=== PATIENT | male | born 1940 | race Caucasian/White ===

== ENCOUNTER → 2017-11-03 11:48 | Outpatient (CLI) | payer OTHER, SELFPAY ==
[2017-11-03 12:04] LABS: Add Manual Diff / Slide Review NO; Basophils Percent Auto 0.6 % (0-2); Eosinophils Percent Auto 1.9 % (2-4); Hematocrit 41.2 % (41-53); Hemoglobin 13.8 g/dL (13.5-17.5); Lymphocytes Percent Auto 26.5 % (25-40); Mean Corpuscular HGB Conc 33.4 % (30-36); Mean Corpuscular Hemoglobin 29.6 PG (26-34); Mean Corpuscular Volume 88.7 fL (80-100); Monocytes Percent Auto 6.5 % (3-14); Neutrophils Absolute Auto 4000 /uL (3000-5900); Neutrophils Percent Auto 64.5 % (50-75); Platelet Count 182 X10^3/uL (150-400); Red Blood Cell Count 4.65 X10^6/uL (4.5-5.9); Red Cell Distribution Width 13.5 % (11.6-14.8); White Blood Cell Count 6.3 X10^3/uL (4.5-11.0)
[2017-11-03 12:19] LABS: Alanine Aminotransferase 22 IU/L (21-72); Albumin 4.1 g/dL (3.5-5.0); Albumin Globulin Ratio 1.6 (1.0-2.8); Alkaline Phosphatase 51 U/L (38-126); Aspartate Aminotransferase 17 IU/L (17-59); Bilirubin Total 0.6 mg/dL (0.2-1.3); Blood Urea Nitrogen 21 mg/dL (9-20); Calcium 9.4 mg/dL (8.4-10.2); Carbon Dioxide 29 mmol/L (22-32); Chloride 103 mmol/L (98-107); Cholesterol 129 mg/dL (140-199); Estimated Glomerular Filt Rate > 60.0 mL/min (>60); Globulin 2.6 g/dL (1.7-4.1); Glucose 96 mg/dL (80-110); HDL Cholesterol 48 mg/dL (40-60); HEMOLYSIS < 15 (0-50); LDL Cholesterol Calculated 68 mg/dL (<100); Potassium 4.4 mmol/L (3.4-5.1); Sodium 139 mmol/L (137-145); Total Protein 6.7 g/dL (6.3-8.2); Triglycerides 65 mg/dL (35-150)
[2017-11-03 12:21] LABS: Hemoglobin A1C% w Est Avg Glu 6.3 % (4.0-6.0)
[2017-11-03 15:51] LABS: Creatinine Urine Random 95.6 mg/dL
[2017-11-03 15:53] LABS: Microalbumi Creatinin Ratio Ur 19.8 ug/mg CR (<30); Microalbumin Urine Random 1.9 mg/dL (0-1.6)
== END ==
PROVIDERS: PCP Family Medicine; Visit Provider Family Medicine
DX: E11.9 Type 2 diabetes mellitus without complications (principal); E78.00 Pure hypercholesterolemia, unspecified; Z79.899 Other long term (current) drug therapy; Z00.00 Encounter for general adult medical examination without abnormal findings
CPT/HCPCS: 36415; 80053; 80061; 82043; 82570; 83036; 85025

== ENCOUNTER → 2017-11-17 12:25 | Outpatient (CLI) | payer OTHER, SELFPAY | PROVIDERS: PCP Family Medicine; Visit Provider Urology | DX: R97.20 Elevated prostate specific antigen [PSA] (principal) | CPT/HCPCS: 36415; 84153 ==

== ENCOUNTER → 2018-06-15 09:25 | Outpatient (CLI) | payer OTHER, SELFPAY ==
--- NOTE | 2018-06-15 09:27 | DI.RAD.S_ITS ---
PROCEDURE: XR KNEE LT 3V INDICATIONS: Left knee pain and injury TECHNIQUE: 3 views of the knee were acquired. COMPARISON: None. FINDINGS: Bones: No fractures or dislocations. No suspicious bony lesions. [id number] tricompartment osteoarthritis is seen. Chondrocalcinosis in all 3 compartments of left knee is also noted. Soft tissues: There is moderate amount of joint effusion. No suspicious soft tissue calcifications. Vascular calcification is seen in posterior left knee. IMPRESSION: Moderate tricompartment osteoarthritis and chondrocalcinosis. Moderate joint effusion. No fracture or dislocation. Dictated by: David Hartman M.D. on 06/15/2018 at 12:34 Approved by: David Hartman M.D. on 06/15/2018 at 12:35
[2018-06-15 10:46] LABS: Hemoglobin A1C% w Est Avg Glu 7.9 % (4.0-6.0)
== END ==
PROVIDERS: PCP Student in an Organized Health Care Education/Training Program; Visit Provider Nurse Practitioner
DX: M25.562 Pain in left knee (principal); E11.9 Type 2 diabetes mellitus without complications; M17.12 Unilateral primary osteoarthritis, left knee; M11.262 Other chondrocalcinosis, left knee; M25.462 Effusion, left knee
CPT/HCPCS: 36415; 73562; 83036

== ENCOUNTER → 2018-07-31 10:36 | Outpatient (CLI) | payer OTHER, SELFPAY ==
[2018-07-31 11:11] LABS: Hematocrit 42.5 % (41-53); Hemoglobin 14.4 g/dL (13.5-17.5); Mean Corpuscular HGB Conc 33.9 % (30-36); Mean Corpuscular Hemoglobin 29.9 PG (26-34); Mean Corpuscular Volume 88.3 fL (80-100); Platelet Count 204 X10^3/uL (150-400); Red Blood Cell Count 4.82 X10^6/uL (4.5-5.9); Red Cell Distribution Width 14.3 % (11.6-14.8); White Blood Cell Count 6.5 X10^3/uL (4.5-11.0)
[2018-07-31 11:29] LABS: Hemoglobin A1C% w Est Avg Glu 7.3 % (4.0-6.0)
[2018-07-31 11:33] LABS: Alkaline Phosphatase 62 U/L (38-126); Blood Urea Nitrogen 16 mg/dL (9-20); Calcium 9.8 mg/dL (8.4-10.2); Carbon Dioxide 27 mmol/L (22-32); Chloride 101 mmol/L (98-107); Estimated Glomerular Filt Rate > 60.0 mL/min (>60); Glucose 117 mg/dL (80-110); HEMOLYSIS < 15 (0-50); Phosphorous 3.7 mg/dL (2.3-3.7); Potassium 4.6 mmol/L (3.4-5.1); Sodium 137 mmol/L (137-145); Uric Acid 5.6 mg/dL (3.5-8.5)
[2018-08-02 14:40] LABS: Parathyroid Hormone Int 44 pg/mL (14-64)
== END ==
PROVIDERS: PCP Student in an Organized Health Care Education/Training Program; Visit Provider Urology
DX: R97.20 Elevated prostate specific antigen [PSA] (principal); E11.9 Type 2 diabetes mellitus without complications; M11.20 Other chondrocalcinosis, unspecified site
CPT/HCPCS: 36415; 80048; 83036; 83735; 83970; 84075; 84100; 84550; 85027

== ENCOUNTER → 2018-08-09 11:37 | Outpatient (CLI) | payer OTHER, SELFPAY ==
[2018-08-09 13:03] LABS: Prostate Specific Antigen 7.42 ng/mL (0.10-4.00)
== END ==
PROVIDERS: PCP Student in an Organized Health Care Education/Training Program; Visit Provider Urology
DX: R97.20 Elevated prostate specific antigen [PSA] (principal)
CPT/HCPCS: 84153

== ENCOUNTER → 2018-10-08 12:13 | Outpatient (CLI) | payer OTHER, SELFPAY ==
[2018-10-08 13:37] LABS: Prostate Specific Antigen 6.96 ng/mL (0.10-4.00)
== END ==
PROVIDERS: PCP Student in an Organized Health Care Education/Training Program; Visit Provider Urology
DX: R97.20 Elevated prostate specific antigen [PSA] (principal)
CPT/HCPCS: 36415; 84153

== ENCOUNTER → 2018-11-20 09:22 | Outpatient (CLI) | payer OTHER, SELFPAY ==
[2018-11-20 11:32] LABS: Hemoglobin A1C% w Est Avg Glu 6.3 % (4.0-6.0)
[2018-11-20 11:41] LABS: Creatinine Urine Random 107.7 mg/dL
[2018-11-20 11:46] LABS: Microalbumi Creatinin Ratio Ur 32.4 ug/mg CR (<30); Microalbumin Urine Random 3.5 mg/dL (0-1.6)
== END ==
PROVIDERS: PCP Student in an Organized Health Care Education/Training Program; Visit Provider Student in an Organized Health Care Education/Training Program
DX: E11.9 Type 2 diabetes mellitus without complications (principal)
CPT/HCPCS: 36415; 82043; 82570; 83036

== ENCOUNTER → 2019-04-26 14:01 | Outpatient (CLI) | payer OTHER, SELFPAY | PROVIDERS: PCP Student in an Organized Health Care Education/Training Program; Referring Provider Student in an Organized Health Care Education/Training Program; Visit Provider Student in an Organized Health Care Education/Training Program | DX: E11.9 Type 2 diabetes mellitus without complications (principal) | CPT/HCPCS: 36415; 83036 ==

== ENCOUNTER → 2020-03-26 15:00 | Outpatient (CLI) | payer OTHER, SELFPAY ==
[2020-03-26 15:58] LABS: Hemoglobin A1C% w Est Avg Glu 7.8 % (4.0-6.0)
[2020-03-26 16:15] LABS: BUN Creatinine Ratio 27.4 (6-22); Blood Urea Nitrogen 26 mg/dL (9-20); Calcium 9.6 mg/dL (8.4-10.2); Carbon Dioxide 29 mmol/L (22-32); Chloride 101 mmol/L (98-107); Estimated Glomerular Filt Rate > 60.0 mL/min (>60); Glucose 283 mg/dL (80-110); HEMOLYSIS < 15 (0-50); Potassium 4.9 mmol/L (3.4-5.1); Sodium 134 mmol/L (137-145)
[2020-03-26 16:24] LABS: Creatinine Urine Random 52.8 mg/dL
[2020-03-26 16:29] LABS: Microalbumi Creatinin Ratio Ur 13.2 ug/mg CR (<30); Microalbumin Urine Random 0.7 mg/dL (0-1.6)
== END ==
PROVIDERS: PCP Student in an Organized Health Care Education/Training Program; Referring Provider Student in an Organized Health Care Education/Training Program; Visit Provider Student in an Organized Health Care Education/Training Program
DX: E11.9 Type 2 diabetes mellitus without complications (principal); I10 Essential (primary) hypertension
CPT/HCPCS: 36415; 80048; 82043; 82570; 83036

== ENCOUNTER → 2020-06-01 14:48 | Outpatient (CLI) | payer MEDICARE, SELFPAY ==
[2020-06-01] MEDS: COVID-19 VACC, Ad26(JANSSEN)/PF 0.5 ML IM (15:03)
== END ==
PROVIDERS: PCP Student in an Organized Health Care Education/Training Program; Visit Provider Internal Medicine
DX: Z23 Encounter for immunization (principal)
CPT/HCPCS: 0031A; 91303

== ENCOUNTER → 2020-06-24 14:32 | Outpatient (CLI) | payer OTHER, SELFPAY ==
[2020-06-24 15:46] LABS: Hemoglobin A1C% w Est Avg Glu 8.2 % (4.0-6.0)
[2020-06-25 07:56] LABS: PSA Free % 24.1 % (.)
== END ==
PROVIDERS: PCP Student in an Organized Health Care Education/Training Program; Referring Provider Orthopaedic Surgery; Visit Provider Orthopaedic Surgery
DX: E11.9 Type 2 diabetes mellitus without complications (principal); N40.1 Benign prostatic hyperplasia with lower urinary tract symptoms
CPT/HCPCS: 36415; 83036; 84153; 84154

== ENCOUNTER → 2020-07-07 10:37 | Outpatient (CLI) | payer OTHER, SELFPAY ==
[2020-07-07 11:55] LABS: Blood Urea Nitrogen 18 mg/dL (9-20); Estimated Glomerular Filt Rate > 60.0 mL/min (>60)
== END ==
PROVIDERS: PCP Student in an Organized Health Care Education/Training Program; Referring Provider Student in an Organized Health Care Education/Training Program; Visit Provider Student in an Organized Health Care Education/Training Program
DX: N14.1 Nephropathy induced by other drugs, medicaments and biological substances (principal); T50.8X5A Adverse effect of diagnostic agents, initial encounter
CPT/HCPCS: 36415; 82565; 84520

== ENCOUNTER → 2020-07-09 11:52 | Outpatient (CLI) | payer OTHER, SELFPAY ==
--- NOTE | 2020-07-09 12:50 | DI.CT.S_ITS ---
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 5 mm coronal and sagittal reformats were performed, with additional 7 mm coronal MIP reformats through the lungs. For radiation dose reduction, the following was used: automated exposure control, adjustment of mA and/or kV according to patient size. COMPARISON: None. FINDINGS: Image quality: Excellent. CHEST: Lungs and pleura: No acute airspace opacities are found that would suggest presence of pneumonia but there is a finding of large lung volumes and what appears to be centrilobular emphysema at the upper lungs, and a malignant appearing spiculated 1.8 x 2.0 cm lung mass at the posterior left upper lobe. At the same axial level at the midline of the soft tissues of the back there is a mass that could represent a sebaceous cyst, measuring up to 2.9 cm in maximal transverse dimension and approximately 1.9 cm AP. This is best seen on series 2, image 15. . No pleural effusions or pneumothorax. Central and peripheral airways appear patent and normal in caliber. Mediastinum: Heart size is normal. No pericardial effusion. No mediastinal or hilar adenopathy by size criteria. Thoracic aorta and central pulmonary arteries are normal in size. Esophagus is normal in caliber. No hiatal hernia. Chest wall: No axillary or supraclavicular adenopathy by size criteria. Thyroid gland is normal where well seen. 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 ABDOMEN: Solid organs: Liver is normal in size and enhancement. Gallbladder appears partially contracted . Biliary system is non dilated. Pancreas enhances normally. Spleen is normal in size and enhancement. No adrenal nodules. Kidneys demonstrate normal size and enhancement, without hydronephrosis. Peritoneum and bowel: Bowel loops demonstrate normal wall thickness and caliber. No free fluid or air. Nodes and vessels: No retroperitoneal or mesenteric adenopathy by size criteria. Aorta and inferior vena cava are normal in size. Miscellaneous: No ventral hernias. 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 PELVIS: Genitourinary: Bladder wall thickness is normal. Miscellaneous: No inguinal hernias or adenopathy. The prostate gland does not show soft tissue mass extending through the capsular border into adjacent structures. Bones: Seen within the pelvis also is extensive osteoblastic metastatic disease. No vertebral body compression fractures. IMPRESSION: 1. Extensive osteoblastic metastatic disease through the chest abdomen and pelvis. No impending pathologic fracture is seen. 2. Through the abdomen and pelvis no adenopathy is found. There is no evidence of prostate mass extending through the prostate capsule into adjacent structures. 3. There is an unexpected finding of a malignant-appearing mass at the posterior left upper lobe measuring approximately 1.8 x 2.0 cm, spiculated. The lungs appear to show hyperexpansion consistent with COPD and centrilobular emphysema. Presumed longstanding smoking history. Nuclear medicine PET-CT scanning may be warranted for staging purposes of this presumed concurrent lung carcinoma. 4. At the same axial level as the lung mass there is a soft tissue mass exactly at the midline dorsal to the spinous processes of the thoracic spine. By appearance this likely is a sebaceous cyst but should be further assessed sonographically to confirm. Dictated by: Miguel Munson M.D. on 07/09/2020 at 17:28 Approved by: Miguel Munson M.D. on 07/09/2020 at 17:39
== END ==
PROVIDERS: PCP Student in an Organized Health Care Education/Training Program; Referring Provider Student in an Organized Health Care Education/Training Program; Visit Provider Student in an Organized Health Care Education/Training Program
DX: C80.1 Malignant (primary) neoplasm, unspecified (principal); C79.51 Secondary malignant neoplasm of bone; M89.8X5 Other specified disorders of bone, thigh; R91.8 Other nonspecific abnormal finding of lung field; J43.2 Centrilobular emphysema
CPT/HCPCS: 71260; 74177; Q9967

== ENCOUNTER → 2020-07-28 09:21 | Outpatient (CLI) | payer OTHER, SELFPAY ==
[2020-07-28 11:32] LABS: Vitamin B12 386 pg/mL (239-931)
== END ==
PROVIDERS: PCP Student in an Organized Health Care Education/Training Program; Referring Provider Student in an Organized Health Care Education/Training Program; Visit Provider Student in an Organized Health Care Education/Training Program
DX: I10 Essential (primary) hypertension; E53.8 Deficiency of other specified B group vitamins; R41.3 Other amnesia
CPT/HCPCS: 36415; 82565; 82607; 83036; 84520

== ENCOUNTER → 2020-10-03 11:34 | Outpatient (CLI) | payer OTHER, SELFPAY ==
[2020-10-03 12:15] LABS: BUN Creatinine Ratio 18.4 (6-22); Blood Urea Nitrogen 18 mg/dL (9-20); Estimated Glomerular Filt Rate > 60.0 mL/min (>60)
[2020-10-03 12:17] LABS: Hemoglobin A1C% w Est Avg Glu 7.5 % (4.0-6.0)
== END ==
PROVIDERS: PCP Student in an Organized Health Care Education/Training Program; Referring Provider Student in an Organized Health Care Education/Training Program; Visit Provider Student in an Organized Health Care Education/Training Program
DX: E11.9 Type 2 diabetes mellitus without complications (principal)
CPT/HCPCS: 36415; 82565; 83036; 84520

== ENCOUNTER → 2020-12-30 10:25 | Outpatient (CLI) | payer OTHER, SELFPAY ==
[2020-12-30 11:01] LABS: Hemoglobin A1C% w Est Avg Glu 7.7 % (4.0-6.0)
[2020-12-30 11:15] LABS: Alanine Aminotransferase 16 IU/L (<50); Albumin 4.1 g/dL (3.5-5.0); Albumin Globulin Ratio 1.8 (1.0-2.8); Alkaline Phosphatase 58 U/L (38-126); Aspartate Aminotransferase 21 IU/L (17-59); BUN Creatinine Ratio 24.2 (6-22); Bilirubin Total 0.3 mg/dL (0.2-1.3); Blood Urea Nitrogen 23 mg/dL (9-20); Calcium 9.5 mg/dL (8.4-10.2); Carbon Dioxide 26 mmol/L (22-32); Chloride 101 mmol/L (98-107); Estimated Glomerular Filt Rate > 60.0 mL/min (>60); Globulin 2.3 g/dL (1.7-4.1); Glucose 194 mg/dL (80-110); HEMOLYSIS < 15 (0-50); Potassium 4.5 mmol/L (3.4-5.1); Total Protein 6.4 g/dL (6.3-8.2)
[2020-12-30 11:21] LABS: Sodium 136 mmol/L (137-145)
== END ==
PROVIDERS: PCP Family Medicine; Referring Provider Family Medicine; Visit Provider Family Medicine
DX: C34.90 Malignant neoplasm of unspecified part of unspecified bronchus or lung (principal); E11.9 Type 2 diabetes mellitus without complications; C79.82 Secondary malignant neoplasm of genital organs
CPT/HCPCS: 36415; 80053; 83036

== ENCOUNTER → 2021-02-02 13:30 | Outpatient (CLI) | payer OTHER, SELFPAY ==
--- NOTE | 2021-02-02 13:41 | DI.CT.S_ITS ---
PROCEDURE: CT CHEST WO CON INDICATIONS: Malignant neoplasm of upper lobe, left bronchus or lung TECHNIQUE: Noncontrast 5 mm thick sections acquired from the pulmonary apices to the posterior costophrenic angles. 1 mm lung window, 5 mm thick coronal and sagittal and 7 mm axial MIP reformats were then acquired. For radiation dose reduction, the following was used: automated exposure control, adjustment of mA and/or kV according to patient size. COMPARISON: [facility], CT, CT BIOPSY LUNG/MEDIASTINUM, 08/20/2020, 8:46. [facility], CT, CT ESCOBAR, 09/22/2020, 13:17. [facility], CT, CT CHEST ABD PEL W CON, 07/09/2020, 12:59. FINDINGS: Image quality: Excellent. Lungs and pleura: Interval decrease in size of spiculated left upper lobe lung mass, previously measuring approximately 1.9 cm on previous image 72/3 and currently measuring approximately 1.1 cm on current image 62/3. No new or increasing pulmonary nodules. Multiple small calcified granulomata consistent with chronic granulomatous disease. Centrilobular emphysema. No acute air space opacities. No pleural effusions or pneumothorax. Central and peripheral airways are patent and normal in caliber. Mediastinum: Heart size is normal. No pericardial effusion. Severe coronary artery calcifications. Severe calcified proximal left subclavian artery stenosis. No mediastinal adenopathy by size criteria. Calcified mediastinal and hilar lymph nodes are consistent with chronic granulomatous disease. Thoracic aorta and central pulmonary arteries are normal in size. Esophagus is normal in caliber. No hiatal hernia. Bones and chest wall: Extensive sclerotic metastatic disease throughout the spine and ribs and scapulae bilaterally and sternum. Findings are not significantly changed. No vertebral body compression fractures. No axillary or supraclavicular adenopathy by size criteria. Thyroid gland is unremarkable . Abdomen: Visualized upper abdominal solid organs and bowel loops appear normal in the absence of contrast. IMPRESSION: 1. Interval decrease in size of spiculated left upper lobe lung mass from 1.9 cm to 1.1 cm. 2. Extensive sclerotic bony metastatic disease, as before. 3. Chronic granulomatous disease. 4. Severe coronary artery disease. 5. Severe calcified proximal left subclavian artery stenosis. Dictated by: Edgard Ramires M.D. on 02/02/2021 at 15:58 Approved by: Edgard Ramires M.D. on 02/02/2021 at 16:04
== END ==
PROVIDERS: PCP Family Medicine; Referring Provider Radiology Radiation Oncology; Visit Provider Radiology Radiation Oncology
DX: C34.12 Malignant neoplasm of upper lobe, left bronchus or lung (principal); C79.51 Secondary malignant neoplasm of bone; I25.10 Atherosclerotic heart disease of native coronary artery without angina pectoris; I77.1 Stricture of artery
CPT/HCPCS: 71250

== ENCOUNTER → 2021-02-23 13:46 | Outpatient (CLI) | payer OTHER, SELFPAY ==
[2021-02-23 14:41] LABS: Add Manual Diff / Slide Review NO; Basophils Absolute Auto 0 /uL (0-100); Basophils Percent Auto 0.5 % (0-2); Eosinophils Absolute Auto 100 /uL (0-450); Eosinophils Percent Auto 1.6 % (2-4); Hematocrit 33.1 % (41-53); Hemoglobin 11.4 g/dL (13.5-17.5); Lymphocytes Absolute Auto 1300 /uL (1100-4500); Lymphocytes Percent Auto 18.7 % (25-40); Mean Corpuscular HGB Conc 34.3 % (30-36); Mean Corpuscular Hemoglobin 30.5 PG (26-34); Mean Corpuscular Volume 88.9 fL (80-100); Monocytes Absolute Auto 500 /uL (0-900); Monocytes Percent Auto 7.4 % (3-14); Neutrophils Absolute Auto 4800 /uL (1500-7000); Neutrophils Percent Auto 71.8 % (50-75); Platelet Count 214 X10^3/uL (150-400); Red Blood Cell Count 3.73 X10^6/uL (4.5-5.9); Red Cell Distribution Width 13.1 % (11.6-14.8); White Blood Cell Count 6.7 X10^3/uL (4.5-11.0)
[2021-02-23 14:56] LABS: Alanine Aminotransferase 13 IU/L (<50); Albumin 4.2 g/dL (3.5-5.0); Albumin Globulin Ratio 1.8 (1.0-2.8); Alkaline Phosphatase 49 U/L (38-126); Aspartate Aminotransferase 20 IU/L (17-59); Bilirubin Total 0.3 mg/dL (0.2-1.3); Blood Urea Nitrogen 20 mg/dL (9-20); Calcium 9.9 mg/dL (8.4-10.2); Carbon Dioxide 28 mmol/L (22-32); Chloride 99 mmol/L (98-107); Estimated Glomerular Filt Rate > 60.0 mL/min (>60); Globulin 2.4 g/dL (1.7-4.1); Glucose 149 mg/dL (80-110); HEMOLYSIS < 15 (0-50); Potassium 4.6 mmol/L (3.4-5.1); Sodium 136 mmol/L (137-145); Total Protein 6.6 g/dL (6.3-8.2)
[2021-02-23 15:26] LABS: Prostate Specific Antigen < 0.064 ng/mL (0.10-4.00)
== END ==
PROVIDERS: PCP Family Medicine; Referring Provider Internal Medicine Hematology & Oncology; Visit Provider Internal Medicine Hematology & Oncology
DX: C61 Malignant neoplasm of prostate (principal)
CPT/HCPCS: 36415; 80053; 84153; 85025

== ENCOUNTER → 2021-04-26 12:34 | Outpatient (CLI) | payer OTHER, SELFPAY ==
[2021-04-26 13:30] LABS: Add Manual Diff / Slide Review NO; Basophils Absolute Auto 0 /uL (0-100); Basophils Percent Auto 0.6 % (0-2); Eosinophils Absolute Auto 100 /uL (0-450); Eosinophils Percent Auto 2.6 % (2-4); Hematocrit 32.6 % (41-53); Hemoglobin 11.1 g/dL (13.5-17.5); Lymphocytes Absolute Auto 1200 /uL (1100-4500); Lymphocytes Percent Auto 21.3 % (25-40); Mean Corpuscular HGB Conc 34.1 % (30-36); Mean Corpuscular Hemoglobin 30.1 PG (26-34); Mean Corpuscular Volume 88.3 fL (80-100); Monocytes Absolute Auto 400 /uL (0-900); Monocytes Percent Auto 7.6 % (3-14); Neutrophils Absolute Auto 3700 /uL (1500-7000); Neutrophils Percent Auto 67.9 % (50-75); Platelet Count 192 X10^3/uL (150-400); Red Blood Cell Count 3.69 X10^6/uL (4.5-5.9); Red Cell Distribution Width 13.4 % (11.6-14.8); White Blood Cell Count 5.4 X10^3/uL (4.5-11.0)
[2021-04-26 14:03] LABS: Alanine Aminotransferase 14 IU/L (<50); Albumin Globulin Ratio 1.7 (1.0-2.8); Alkaline Phosphatase 58 U/L (38-126); Aspartate Aminotransferase 19 IU/L (17-59); Bilirubin Total 0.3 mg/dL (0.2-1.3); Blood Urea Nitrogen 21 mg/dL (9-20); Calcium 9.8 mg/dL (8.4-10.2); Carbon Dioxide 25 mmol/L (22-32); Chloride 102 mmol/L (98-107); Estimated Glomerular Filt Rate > 60.0 mL/min (>60); Globulin 2.3 g/dL (1.7-4.1); Glucose 312 mg/dL (80-110); HEMOLYSIS < 15 (0-50); Potassium 4.8 mmol/L (3.4-5.1); Sodium 134 mmol/L (137-145); Total Protein 6.3 g/dL (6.3-8.2)
[2021-04-26 14:34] LABS: Prostate Specific Antigen < 0.064 ng/mL (0.10-4.00)
== END ==
PROVIDERS: PCP Family Medicine; Referring Provider Internal Medicine Hematology & Oncology; Visit Provider Internal Medicine Hematology & Oncology
DX: C61 Malignant neoplasm of prostate (principal)
CPT/HCPCS: 36415; 80053; 84153; 85025

== ENCOUNTER → 2021-07-14 12:08 | Outpatient (CLI) | payer OTHER, SELFPAY ==
--- NOTE | 2021-07-14 12:11 | DI.RAD.S_ITS ---
PROCEDURE: XR HIP W PEL IF DONE RT 2V INDICATIONS: right hip pain TECHNIQUE: AP pelvis with lateral view(s) of the right hip(s). COMPARISON: [facility], CT, CT CHEST ABD PEL W CON, 07/09/2020, 12:59. [facility], CR, XR CHEST 1 VIEW, 08/20/2020, 10:34. [facility], CR, XR KNEE STANDING BILATERAL, 06/25/2018, 14:32. [facility], [place], NM PET CT FUSION SKULL 2 THIGH, 08/12/2020, 7:27. [facility] [place], CR, XR PELVIS WITH LATERAL HIP RIGHT, 06/24/2020, 13:28. FINDINGS: Bones: Extensive small sclerotic lesions involving the bony pelvis and lower lumbar region. Femurs do not appear to be significantly involved. No acute fracture or dislocation. Soft tissues: The visualized bowel gas pattern is normal. No suspicious soft tissue calcifications. IMPRESSION: Extensive small sclerotic lesions are presumed to represent bony metastatic disease. No evidence of acute fracture or dislocation. If clinical suspicion and/or symptoms persist, further assessment with repeat plain films, or advanced imaging (e.g., CT, MRI, or bone scan) may be helpful for further assessment. Dictated by: Edgard Ramires M.D. on 07/14/2021 at 15:09 Approved by: Edgard Ramires M.D. on 07/14/2021 at 15:17
== END ==
PROVIDERS: PCP Family Medicine; Referring Provider Internal Medicine Hematology & Oncology; Visit Provider Internal Medicine Hematology & Oncology
DX: M89.9 Disorder of bone, unspecified (principal); M25.551 Pain in right hip
CPT/HCPCS: 73502

== ENCOUNTER → 2021-07-26 08:55 | Outpatient (CLI) | payer OTHER, SELFPAY ==
--- NOTE | 2021-07-26 09:47 | DI.CT.S_ITS ---
PROCEDURE: CT PELVIS W CON INDICATIONS: Malignant neoplasm of prostate TECHNIQUE: After the administration of oral contrast and intravenous contrast, 5 mm thick sections acquired from the iliac crests to the symphysis. 5 mm thick coronal and sagittal reformats were acquired. For radiation dose reduction, the following was used: automated exposure control, adjustment of mA and/or kV according to patient size. COMPARISON: [facility], CT, CT BIOPSY LUNG/MEDIASTINUM, 08/20/2020, 8:46. [facility], [place], [place] PET CT FUSION SKULL 2 THIGH, 08/12/2020, 7:27. [facility], CT, CT CHEST ABD PEL W CON, 07/09/2020, 12:59. FINDINGS: Image quality: Excellent. Incidental gallstones. Calcified granuloma in the liver. Peritoneum and bowel: Contrast enhanced bowel loops demonstrate normal wall thickness and caliber. Diverticulosis. No free fluid or air. Genitourinary: Bladder wall thickness is normal. Prostate gland measures approximately 5.3 x 5 x 3.9 cm, estimated volume of 54 cc and is decreased in size compared to 07/09/2020. Small prosthetic calcification at the left mid gland. Prosthetic contours appear unchanged compared to 07/09/2020. Nodes and vessels: No enlarged lymph nodes identified. Iliac vessels demonstrate normal size and enhancement. Extensive calcified atherosclerotic plaque. Bones: There is extensive sclerotic foci throughout the bones in the pelvis and lower lumbar spine consistent with metastatic disease. Overall this is similar to 07/07. Miscellaneous: No inguinal hernias. IMPRESSION: 1. No enlarged lymph nodes identified. 2. Extensive osseous metastatic disease is not significantly changed. 3. Prostate gland is decreased in size. Dictated by: Aneudy Elaine M.D. on 07/26/2021 at 10:41 Approved by: Aneudy Elaine M.D. on 07/26/2021 at 10:52
== END ==
PROVIDERS: PCP Family Medicine; Referring Provider Internal Medicine Hematology & Oncology; Visit Provider Internal Medicine Hematology & Oncology
DX: C61 Malignant neoplasm of prostate (principal); C79.51 Secondary malignant neoplasm of bone
CPT/HCPCS: 72193

== ENCOUNTER → 2021-10-11 11:14 | Outpatient (CLI) | payer OTHER, SELFPAY ==
[2021-10-11 12:15] LABS: Appearance Urine UA CLEAR; Bilirubin Urine UA NEGATIVE (NEGATIVE); Color Urine UA YELLOW; Glucose Urine UA NEGATIVE (Negative); Ketones Urine UA NEGATIVE (NEGATIVE); Leukocyte Esterase Urine UA NEGATIVE (NEGATIVE); Nitrite Urine UA NEGATIVE (Negative); Occult Blood Urine UA NEGATIVE (Negative); Protein Urine UA NEGATIVE (Negative); Urobilinogen Urine UA 0.2 E.U./dL (0.2)
[2021-10-11 12:33] LABS: Bacteria Urine None Seen; RBC Urine None Seen (0-5/HPF); Squamous Epithelial Cell Urine 1-5 /HPF (0-5/HPF); WBC Urine 0-1/HPF (0-5/HPF)
[2021-10-11 12:34] LABS: Culture Indicated Urine Cult Not Indicated; Hyaline Casts Urine 0-1/LPF; Mucus Urine 1+ (Negative)
[2021-10-11 13:04] LABS: Add Manual Diff / Slide Review NO; Basophils Absolute Auto 0 /uL (0-100); Basophils Percent Auto 0.8 % (0-2); Eosinophils Absolute Auto 200 /uL (0-450); Eosinophils Percent Auto 3.7 % (2-4); Hematocrit 33.5 % (41-53); Hemoglobin 11.4 g/dL (13.5-17.5); Lymphocytes Absolute Auto 1000 /uL (1100-4500); Lymphocytes Percent Auto 20.5 % (25-40); Mean Corpuscular Hemoglobin 29.1 PG (26-34); Mean Corpuscular Volume 85.7 fL (80-100); Monocytes Absolute Auto 400 /uL (0-900); Monocytes Percent Auto 8.3 % (3-14); Neutrophils Absolute Auto 3300 /uL (1500-7000); Neutrophils Percent Auto 66.7 % (50-75); Platelet Count 222 X10^3/uL (150-400); Red Cell Distribution Width 14.8 % (11.6-14.8)
[2021-10-11 13:08] LABS: Hemoglobin A1C% w Est Avg Glu 7.4 % (4.0-6.0)
[2021-10-11 13:22] LABS: Alanine Aminotransferase 14 IU/L (<50); Albumin 4.3 g/dL (3.5-5.0); Albumin Globulin Ratio 1.5 (1.0-2.8); Alkaline Phosphatase 55 U/L (38-126); Aspartate Aminotransferase 21 IU/L (17-59); BUN Creatinine Ratio 20.5 (6-22); Bilirubin Total 0.4 mg/dL (0.2-1.3); Blood Urea Nitrogen 23 mg/dL (9-20); Calcium 9.5 mg/dL (8.4-10.2); Carbon Dioxide 26 mmol/L (22-32); Chloride 99 mmol/L (98-107); Cholesterol 205 mg/dL (140-199); Estimated Glomerular Filt Rate > 60 mL/min (>60); Globulin 2.8 g/dL (1.7-4.1); Glucose 209 mg/dL (80-110); HDL Cholesterol 49 mg/dL (40-60); HEMOLYSIS < 15 (0-50); LDL Cholesterol Calculated 129 mg/dL (<100); Potassium 4.3 mmol/L (3.4-5.1); Sodium 134 mmol/L (137-145); Total Protein 7.1 g/dL (6.3-8.2); Triglycerides 137 mg/dL (35-150)
[2021-10-11 13:58] LABS: TSH w/ Reflex to FT4 0.53 uIU/mL (0.47-4.68)
[2021-10-11 14:11] LABS: Vitamin B12 755 pg/mL (239-931)
== END ==
PROVIDERS: PCP Family Medicine; Referring Provider Family Medicine; Visit Provider Family Medicine
DX: E11.69 Type 2 diabetes mellitus with other specified complication (principal); E78.5 Hyperlipidemia, unspecified; I10 Essential (primary) hypertension; R41.3 Other amnesia; R41.89 Other symptoms and signs involving cognitive functions and awareness
CPT/HCPCS: 36415; 80053; 80061; 81001; 82607; 83036; 84443; 85025

== ENCOUNTER → 2021-12-28 12:32 | Outpatient (CLI) | payer OTHER, SELFPAY ==
[2021-12-28 14:47] LABS: Creatinine Urine Random 98.9 mg/dL
[2021-12-28 14:52] LABS: Microalbumi Creatinin Ratio Ur 19.2 ug/mg CR (<30); Microalbumin Urine Random 1.9 mg/dL (0-1.6)
== END ==
PROVIDERS: PCP Family Medicine; Referring Provider Family Medicine; Visit Provider Family Medicine
DX: E11.9 Type 2 diabetes mellitus without complications (principal)
CPT/HCPCS: 36415; 82043; 82570; 83036

== ENCOUNTER → 2022-01-13 16:43 | Outpatient (CLI) | payer OTHER, SELFPAY ==
[2022-01-13 18:04] LABS: Add Manual Diff / Slide Review NO; Basophils Absolute Auto 0 /uL (0-100); Basophils Percent Auto 0.9 % (0-2); Eosinophils Absolute Auto 100 /uL (0-450); Eosinophils Percent Auto 2.2 % (2-4); Hematocrit 30.3 % (41-53); Hemoglobin 10.4 g/dL (13.5-17.5); Lymphocytes Absolute Auto 1200 /uL (1100-4500); Lymphocytes Percent Auto 22.1 % (25-40); Mean Corpuscular HGB Conc 34.1 % (30-36); Mean Corpuscular Hemoglobin 29.4 PG (26-34); Mean Corpuscular Volume 86.2 fL (80-100); Monocytes Absolute Auto 400 /uL (0-900); Monocytes Percent Auto 6.5 % (3-14); Neutrophils Absolute Auto 3800 /uL (1500-7000); Neutrophils Percent Auto 68.3 % (50-75); Platelet Count 210 X10^3/uL (150-400); Red Blood Cell Count 3.52 X10^6/uL (4.5-5.9); Red Cell Distribution Width 15.7 % (11.6-14.8); White Blood Cell Count 5.5 X10^3/uL (4.5-11.0)
[2022-01-13 18:27] LABS: Alanine Aminotransferase 20 IU/L (<50); Albumin Globulin Ratio 1.4 (1.0-2.8); Alkaline Phosphatase 71 U/L (38-126); Aspartate Aminotransferase 22 IU/L (17-59); BUN Creatinine Ratio 19.1 (6-22); Bilirubin Total 0.2 mg/dL (0.2-1.3); Blood Urea Nitrogen 17 mg/dL (9-20); Calcium 9.8 mg/dL (8.4-10.2); Carbon Dioxide 26 mmol/L (22-32); Chloride 99 mmol/L (98-107); Estimated Glomerular Filt Rate > 60 mL/min (>60); Globulin 2.9 g/dL (1.7-4.1); Glucose 194 mg/dL (80-110); HEMOLYSIS < 15 (0-50); Potassium 4.1 mmol/L (3.4-5.1); Sodium 134 mmol/L (137-145); Total Protein 6.9 g/dL (6.3-8.2)
[2022-01-13 18:54] LABS: Prostate Specific Antigen < 0.064 ng/mL (0.10-4.00)
== END ==
PROVIDERS: PCP Family Medicine; Referring Provider Internal Medicine Hematology & Oncology; Visit Provider Internal Medicine Hematology & Oncology
DX: C61 Malignant neoplasm of prostate (principal); C34.12 Malignant neoplasm of upper lobe, left bronchus or lung
CPT/HCPCS: 36415; 80053; 84153; 85025

== ENCOUNTER → 2022-05-17 14:55 | Outpatient (CLI) | payer OTHER, SELFPAY ==
[2022-05-17 15:18] LABS: Add Manual Diff / Slide Review NO; Basophils Absolute Auto 0 /uL (0-100); Basophils Percent Auto 0.6 % (0-2); Eosinophils Absolute Auto 200 /uL (0-450); Eosinophils Percent Auto 2.3 % (2-4); Hematocrit 33.2 % (41-53); Hemoglobin 11.3 g/dL (13.5-17.5); Lymphocytes Absolute Auto 1300 /uL (1100-4500); Lymphocytes Percent Auto 17.7 % (25-40); Mean Corpuscular HGB Conc 34.1 % (30-36); Mean Corpuscular Hemoglobin 29.3 PG (26-34); Mean Corpuscular Volume 85.9 fL (80-100); Monocytes Absolute Auto 600 /uL (0-900); Monocytes Percent Auto 8.5 % (3-14); Neutrophils Absolute Auto 5000 /uL (1500-7000); Neutrophils Percent Auto 70.9 % (50-75); Platelet Count 208 X10^3/uL (150-400); Red Blood Cell Count 3.86 X10^6/uL (4.5-5.9); Red Cell Distribution Width 14.4 % (11.6-14.8); White Blood Cell Count 7.1 X10^3/uL (4.5-11.0)
[2022-05-17 15:35] LABS: HEMOLYSIS < 15 (0-50); Iron 59 ug/dL (49-181)
[2022-05-17 15:42] LABS: Alanine Aminotransferase 19 IU/L (<50); Albumin 4.2 g/dL (3.5-5.0); Albumin Globulin Ratio 1.5 (1.0-2.8); Alkaline Phosphatase 74 U/L (38-126); Aspartate Aminotransferase 24 IU/L (17-59); BUN Creatinine Ratio 19.8 (6-22); Bilirubin Total 0.3 mg/dL (0.2-1.3); Blood Urea Nitrogen 24 mg/dL (9-20); Calcium 10.2 mg/dL (8.4-10.2); Carbon Dioxide 25 mmol/L (22-32); Chloride 97 mmol/L (98-107); Estimated Glomerular Filt Rate 60 mL/min (>60); Globulin 2.8 g/dL (1.7-4.1); Glucose 206 mg/dL (80-110); HEMOLYSIS < 15 (0-50); Potassium 4.3 mmol/L (3.4-5.1); Sodium 135 mmol/L (137-145)
[2022-05-17 15:47] LABS: Percent Iron Saturation 20 % (20-50); Total Iron Binding Capacity 289 ug/dL (261-462); Transferrin 230 mg/dL (206-381)
[2022-05-17 16:12] LABS: Ferritin 47 ng/mL (18-464)
== END ==
PROVIDERS: PCP Family Medicine; Referring Provider Family Medicine; Visit Provider Family Medicine
DX: D64.9 Anemia, unspecified (principal); R15.2 Fecal urgency; R19.5 Other fecal abnormalities
CPT/HCPCS: 36415; 80053; 82728; 83540; 83550; 85025

== ENCOUNTER 2022-06-07 09:38 | Day surgery (SDC) | payer OTHER, SELFPAY ==
--- NOTE | 2022-06-07 | PATH_ITS ---
[facility] Accession Number: [id number] No. of containers..01 Tissue . 01 Material submitted: . colon - ASCENDING . 01 Diagnosis: Ascending Colon: Tubular adenoma. MRV 06/10/2022 1220 Local . 01 Electronically signed: . Naseem Fine MD, PhD, Pathologist NPI- [id number] . 01 Gross description: . ASCENDING: Received in formalin are 2 fragment(s) of malave, soft tissue measuring 0.5 x 0.2 x 0.1 cm to 0.2 x 0.2 x 0.1 cm submitted entirely in 1 cassette(s) /CPE 06/08/2022 0650 Local . 01 Pathologist provided ICD-10: D12.2 . 01 CPT . 903241 Specimen Comment: A courtesy copy of this report has been sent to [phone] Performed at: 01 [facility] [address] [place] [address], [place], [place] [id number] MD Min Jules MD Phone: [phone]
[2022-06-07 10:01] VITALS: BP 158/76; PULSE 109; RESP 16; TEMP 36.2; O2SAT 100; BMI 21.4
[2022-06-07] MEDS: LACTATED RINGERS 1,000 ML 200 ML IV (10:07)
--- NOTE | 2022-06-07 10:41 | PM.PREOP ---
Pre-operative Note Interval Note History & Physical reviewed/Exam performed by Physician: Yes Changes to H&P: No
--- NOTE | 2022-06-07 10:58 | SUR.PREOP ---
Lexi, anesthesiologist, informed of glucose. No orders at this time.
[2022-06-07 11:22] VITALS: BP 125/66; PULSE 76; RESP 20; TEMP 35.9; O2SAT 99
--- NOTE | 2022-06-07 11:23 | PM.OP.COLON ---
Operative Date/Time/Diagnoses Date of procedure: 06/07/22 Time of procedure: 11:23 Pre-op diagnosis: Chronic diarrhea Post-op diagnosis: other (Colonic polyp x1) Procedure & Clinicians Study performed: Colonoscopy and polypectomy Same procedure as scheduled: Yes Indications: Chronic diarrhea Surgeon: Tarun Gordon Procedure Notes Procedure in detail: The history and physical was performed/updated and the patient is ASA class is 2. The procedure was discussed in detail with the patient. Potential risks complications including infection, bleeding, missed diagnosis, perforation, need for surgery, and were explained. Their questions were answered and informed consent was obtained. Patient was brought to the procedure room and placed standard monitoring equipment. The patient's vital signs were monitored continuously throughout the entire procedure. Prior to starting time-out was performed. The patient was placed in the left lateral recumbent position. Procedural sedation was administered by anesthesia. Examination began with a thorough inspection of the perianal area there was no evidence of fissures, fistulae, external hemorrhoids or cutaneous malignancy. The colonoscopy scope was then placed into the anal canal and was advanced to the cecum, which was identified by the ileocecal valve, the appendiceal orifice and the confluence of the taenia. The scope was then slowly withdrawn examining colon thoroughly in all directions, irrigating it of any residual stool. Within the ascending colon there was a 5 mm polyp removed with biopsy forceps. The remainder of the colon was normal in its appearance with the exception of diverticulosis within the sigmoid colon internal hemorrhoids on retroflexion The patient tolerated the procedure well. They will be discharged once criteria are met. The prep was of good/excellent quality. The withdrawl time was 8 minutes. Specimen(s): other (Ascending colon polyp) Impression: Colonic polyp Post-procedure Plan for aftercare: Follow-up is dependent on pathology findings Disposition: same day surgery
[2022-06-07 11:28] VITALS: BP 125/64; PULSE 68; RESP 20; O2SAT 99
[2022-06-07 11:32] VITALS: BP 124/66; PULSE 94; RESP 20; O2SAT 99
[2022-06-07 11:37] VITALS: BP 120/75; PULSE 73; RESP 16; O2SAT 100
== END 2022-06-07 12:05 | disposition home or self-care (01) ==
PROVIDERS: PCP Family Medicine; Referring Provider Surgery; Visit Provider Surgery
PROC: 0DJD8ZZ Inspection of Lower Intestinal Tract, Via Natural or Artificial Opening Endoscopic (ICD-10-PCS; CPT 45378; principal; 2022-06-07 10:30)
DX: K52.9 Noninfective gastroenteritis and colitis, unspecified (principal); D12.2 Benign neoplasm of ascending colon
CPT/HCPCS: 45380; J2704

== ENCOUNTER 2022-10-06 10:40 | Inpatient (IN) | payer OTHER, SELFPAY ==
[2022-10-06] VITALS (16 sets, daily range): BP systolic 115–161; BP diastolic 50–74; PULSE 76–108; RESP 17–30; TEMP 36.2; O2SAT 94–99; BMI 24.0
--- NOTE | 2022-10-06 10:52 | ED_ITS ---
HPI - General Adult General Chief complaint: Fall Stated complaint: GLF Time Seen by Provider: 10/06/22 10:46 History of Present Illness HPI narrative: 82-year-old gentleman brought in by medics with concerns that he had fallen in the shower, apparently his was quite concerned. Patient currently is significantly confused, unclear how much of this is baseline dementia and how much is new, has no recollection of falling or any recent events. 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 Gonzales most recent follow-up was September 29 with discussion of inclusion in clinical trial. He is not currently complaining of any pain and not oriented to person time or place. Related Data Home Medications Medication Instructions Recorded Confirmed aspirin 81 mg tablet,delayed 81 mg PO DAILY 11/20/18 06/07/22 release Previous Rx's Medication Instructions Recorded blood-glucose meter (Accu-Chek #1 ea 05/19/21 Guide Glucose Meter) lancets for glucose checks #1 packet 06/08/21 blood sugar diagnostic (Accu-Chek #100 ea 06/30/21 Wandy Plus test strips) lancets (Accu-Chek Softclix #100 ea 07/23/21 Lancets) metformin 1,000 mg tablet 1,000 mg PO BID #180 tabs 01/17/22 donepezil 5 mg tablet 5 mg PO BEDTIME #90 tabs 09/30/22 Allergies Allergy/AdvReac Type Severity Reaction Status Date / Time No Known Drug Allergies Allergy Verified 10/06/22 10:51 Review of Systems Review of Systems ROS Unobtainable: Unobtainable due to mental status/LOC Patient History Medical History (Updated 10/06/22 @ 16:23 by Radha Storey MD) Abnormal CXR (chest x-ray) (1977) 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 Brother No problems noted. Brother Diabetes mellitus Sister No problems noted. Social History (Updated 05/26/22 @ 13:44 by María Norwood MA) marital status: household members: spouse lives independently: Yes Smoking Status: Former smoker alcohol intake: former Smoking Status: Former smoker alcohol intake frequency: holidays/special occasions only Substance Use Type: does not use Exam Initial Vital Signs Initial Vital Signs: Vital Signs Pulse Rate 108 H 10/06/22 10:52 Respiratory Rate 24 10/06/22 10:52 Blood Pressure 161/74 H 10/06/22 10:52 Pulse Oximetry 96 10/06/22 10:52 Oxygen Delivery Method Room Air 10/06/22 10:52 General: Frail-appearing gentleman in no acute distress. HEENT: Moist mucous membranes, normal sclera with reactive pupils, Neck: No JVD, supple Respiratory: Lungs with basilar crackles. He has a 1.5 cm of irritation over the left scapula that looks like a pressure ulcer developing over the last approximately 24 hours. Cardiac: Regular rate and rhythm no murmurs no bruits Abdomen: Soft, nontender, good bowel tones, no flank pain Skin: Pale, bruises in multiple stages of healing Neurologic: Grossly neurologically intact Extremities: He is able to move all extremities without pain or tenderness, he does have a bruise that appears to be 3 to 4-day-old on the left greater trochanter Psych: Significant confusion, not oriented to person time and place Course Orders Ordered: ED Orders 10/06/22 10:50 CK [Creatine Kinase] Stat Complete Blood Count AUTO DIFF Stat Comprehensive Metabolic Panel Stat Lactate (Lactic Acid) Stat NT-proBNP (BNP-Adult 18+) Stat Procalcitonin Stat Thyroid Stimulating Hormone Stat Troponin I Stat 10/06/22 11:31 EKG-12 Lead Routine 10/06/22 12:52 Blood Culture Stat 10/06/22 14:07 Troponin I Stat 10/06/22 14:32 Urinalysis and Microscopic Stat 10/06/22 14:43 CT head/brain wo con Stat XR chest 1V Stat XR hip w pel if done LT 2V Stat 10/06/22 14:48 CT cervical spine wo con Stat 10/06/22 15:20 EKG-12 Lead Stat Discontinued Medications Sodium Chloride (Normal Saline 0.9%) 1,000 mls @ 1,000 mls/hr IV BOLUS ONE Stop: 10/06/22 13:23 Last Admin: 10/06/22 13:02 Dose: 1,000 mls/hr Documented By: Vital Signs Vital signs: Vital Signs - 8 hr 10/06/22 10:52 10/06/22 11:12 10/06/22 11:30 Pulse Rate 108 H 100 H Respiratory Rate 24 30 H Blood Pressure 161/74 H 145/65 H Pulse Oximetry 96 96 Oxygen Delivery Method Room Air 10/06/22 11:30 10/06/22 12:00 10/06/22 12:00 Pulse Rate 96 H 95 H Respiratory Rate 24 23 Blood Pressure 145/67 H Pulse Oximetry 95 95 Oxygen Delivery Method 10/06/22 12:30 10/06/22 12:30 10/06/22 13:00 Pulse Rate 93 H Respiratory Rate 24 Blood Pressure 139/63 135/63 Pulse Oximetry 96 Oxygen Delivery Method Room Air 10/06/22 13:00 10/06/22 13:30 10/06/22 13:30 Pulse Rate 96 H 90 Respiratory Rate 23 17 Blood Pressure 140/63 Pulse Oximetry 94 96 Oxygen Delivery Method Room Air Room Air 10/06/22 14:00 10/06/22 14:00 10/06/22 14:30 Pulse Rate 89 Respiratory Rate 18 Blood Pressure 138/62 128/59 L Pulse Oximetry 95 Oxygen Delivery Method Room Air 10/06/22 14:30 10/06/22 15:08 10/06/22 15:30 Pulse Rate 83 84 83 Respiratory Rate 23 Blood Pressure Pulse Oximetry 98 96 96 Oxygen Delivery Method Medical Decision Making Lab Data 10/06/22 10:50 10/06/22 10:50 Labs: Lab Results 10/06/22 10/06/22 10/06/22 Range/Units 10:50 10:50 10:50 WBC 9.6 (4.5-11.0) X10^3/uL RBC 3.75 L (4.5-5.9) X10^6/uL Hgb 10.4 L (13.5-17.5) g/dL Hct 31.5 L (41-53) % MCV 84.0 (80-100) fL MCH 27.9 (26-34) PG MCHC 33.2 (30-36) % RDW 15.1 H (11.6-14.8) % Plt Count 203 (150-400) X10^3/uL Neut % (Auto) 90.3 H (50-75) % Lymph % (Auto) 3.3 L (25-40) % Hitchcock % (Auto) 5.9 (3-14) % Eos % (Auto) 0.2 L (2-4) % Baso % (Auto) 0.3 (0-2) % Neut # (Auto) 8600 H (2215-5199) /uL Lymph # (Auto) 300 L (6096-2878) /uL Hitchcock # (Auto) 600 (0-900) /uL Eos # (Auto) 0 (0-450) /uL Baso # (Auto) 0 (0-100) /uL Sodium 134 L (137-145) mmol/L Potassium 4.0 (3.4-5.1) mmol/L Chloride 98 (98-107) mmol/L Carbon Dioxide 26 (22-32) mmol/L BUN 18 (9-20) mg/dL Creatinine 1.19 (0.66-1.25) mg/dL Estimated GFR > 60 (>60) mL/min BUN/Creatinine Ratio 15.1 (6-22) Glucose 342 H (80-110) mg/dL Lactate 2.3 H (0.7-2.1) mmol/L Calcium 10.2 (8.4-10.2) mg/dL Total Bilirubin 0.6 (0.2-1.3) mg/dL AST 31 (17-59) IU/L ALT 17 (<50) IU/L Alkaline Phosphatase 55 (38-126) U/L Total Creatine Kinase 235 H (55-170) U/L Troponin I 0.060 H (0.01-0.034) ng/mL NT-Pro-B Natriuret Pep 454 H (<450) pg/mL Total Protein 7.1 (6.3-8.2) g/dL Albumin 4.1 (3.5-5.0) g/dL Globulin 3.0 (1.7-4.1) g/dL Albumin/Globulin Ratio 1.4 (1.0-2.8) Procalcitonin 1.53 H (<0.5) ng/mL TSH (0.47-4.68) uIU/mL Urine Color Urine Appearance Urine pH (4.5-8.0) Ur Specific [place] (1.000-1.035) Urine Protein (Negative) Urine Glucose (UA) (Negative) g/dL Urine Ketones (NEGATIVE) Urine Occult Blood (Negative) Urine Nitrate (Negative) Urine Bilirubin (NEGATIVE) Urine Urobilinogen (0.2) E.U./dL Ur Leukocyte Esterase (NEGATIVE) Urine RBC (0-5/HPF) Urine WBC (0-5/HPF) Ur Squamous Epith Cells (0-5/HPF) Urine Bacteria (None) Hyaline Casts (None) 10/06/22 10/06/22 10/06/22 Range/Units 10:50 14:07 14:32 WBC (4.5-11.0) X10^3/uL RBC (4.5-5.9) X10^6/uL Hgb (13.5-17.5) g/dL Hct (41-53) % MCV (80-100) fL MCH (26-34) PG MCHC (30-36) % RDW (11.6-14.8) % Plt Count (150-400) X10^3/uL Neut % (Auto) (50-75) % Lymph % (Auto) (25-40) % Hitchcock % (Auto) (3-14) % Eos % (Auto) (2-4) % Baso % (Auto) (0-2) % Neut # (Auto) (8384-2010) /uL Lymph # (Auto) (6272-2217) /uL Hitchcock # (Auto) (0-900) /uL Eos # (Auto) (0-450) /uL Baso # (Auto) (0-100) /uL Sodium (137-145) mmol/L Potassium (3.4-5.1) mmol/L Chloride (98-107) mmol/L Carbon Dioxide (22-32) mmol/L BUN (9-20) mg/dL Creatinine (0.66-1.25) mg/dL Estimated GFR (>60) mL/min BUN/Creatinine Ratio (6-22) Glucose (80-110) mg/dL Lactate (0.7-2.1) mmol/L Calcium (8.4-10.2) mg/dL Total Bilirubin (0.2-1.3) mg/dL AST (17-59) IU/L ALT (<50) IU/L Alkaline Phosphatase (38-126) U/L Total Creatine Kinase (55-170) U/L Troponin I 0.304 H* (0.01-0.034) ng/mL NT-Pro-B Natriuret Pep (<450) pg/mL Total Protein (6.3-8.2) g/dL Albumin (3.5-5.0) g/dL Globulin (1.7-4.1) g/dL Albumin/Globulin Ratio (1.0-2.8) Procalcitonin (<0.5) ng/mL TSH 0.541 (0.47-4.68) uIU/mL Urine Color Yellow Urine Appearance Clear Urine pH 6.0 (4.5-8.0) Ur Specific [place] 1.020 (1.000-1.035) Urine Protein Trace H (Negative) Urine Glucose (UA) 2+ H (Negative) g/dL Urine Ketones 1+ H (NEGATIVE) Urine Occult Blood 1+ H (Negative) Urine Nitrate Negative (Negative) Urine Bilirubin Negative (NEGATIVE) Urine Urobilinogen 0.2 (0.2) E.U./dL Ur Leukocyte Esterase Negative (NEGATIVE) Urine RBC 0-1/hpf (0-5/HPF) Urine WBC 0-1/hpf (0-5/HPF) Ur Squamous Epith Cells 0-1 /hpf (0-5/HPF) Urine Bacteria None seen (None) Hyaline Casts 0-1/lpf (None) 10/06/22 Range/Units 14:50 WBC (4.5-11.0) X10^3/uL RBC (4.5-5.9) X10^6/uL Hgb (13.5-17.5) g/dL Hct (41-53) % MCV (80-100) fL MCH (26-34) PG MCHC (30-36) % RDW (11.6-14.8) % Plt Count (150-400) X10^3/uL Neut % (Auto) (50-75) % Lymph % (Auto) (25-40) % Hitchcock % (Auto) (3-14) % Eos % (Auto) (2-4) % Baso % (Auto) (0-2) % Neut # (Auto) (0381-6351) /uL Lymph # (Auto) (6668-5859) /uL Hitchcock # (Auto) (0-900) /uL Eos # (Auto) (0-450) /uL Baso # (Auto) (0-100) /uL Sodium (137-145) mmol/L Potassium (3.4-5.1) mmol/L Chloride (98-107) mmol/L Carbon Dioxide (22-32) mmol/L BUN (9-20) mg/dL Creatinine (0.66-1.25) mg/dL Estimated GFR (>60) mL/min BUN/Creatinine Ratio (6-22) Glucose (80-110) mg/dL Lactate 1.4 (0.7-2.1) mmol/L Calcium (8.4-10.2) mg/dL Total Bilirubin (0.2-1.3) mg/dL AST (17-59) IU/L ALT (<50) IU/L Alkaline Phosphatase (38-126) U/L Total Creatine Kinase (55-170) U/L Troponin I (0.01-0.034) ng/mL NT-Pro-B Natriuret Pep (<450) pg/mL Total Protein (6.3-8.2) g/dL Albumin (3.5-5.0) g/dL Globulin (1.7-4.1) g/dL Albumin/Globulin Ratio (1.0-2.8) Procalcitonin (<0.5) ng/mL TSH (0.47-4.68) uIU/mL Urine Color Urine Appearance Urine pH (4.5-8.0) Ur Specific [place] (1.000-1.035) Urine Protein (Negative) Urine Glucose (UA) (Negative) g/dL Urine Ketones (NEGATIVE) Urine Occult Blood (Negative) Urine Nitrate (Negative) Urine Bilirubin (NEGATIVE) Urine Urobilinogen (0.2) E.U./dL Ur Leukocyte Esterase (NEGATIVE) Urine RBC (0-5/HPF) Urine WBC (0-5/HPF) Ur Squamous Epith Cells (0-5/HPF) Urine Bacteria (None) Hyaline Casts (None) MDM Narrative Medical decision making narrative: CC: Fall in shower, this is an acute finding uncertain prognosis Complicating co-morbidities: Diabetes metastatic prostate cancer, lung cancer Data collected from: patient, Social determinants of health that may influence the patients condition: Cognitive impairment between patient and his maybe significantly interfering with care. His unclear how long he was on the floor and where he was on the floor. Lesion to his shoulder suggest even on the floor at least a day. His stated he was in the shower however he was covered with stool so it does not appear that the shower was on. Has old bruises from multiple prior falls. Medical records reviewed: Oncology consult notes from September 29 are reviewed, primary care notes from May 12 are reviewed Differential considered: Sepsis, fracture, metastatic cancer progression, dehydration, rhabdomyolysis Exam documented above, pertinent findings include: Frail, chronically unhealthy appearing, significant confusion, multiple lesions and skin areas suggesting falls and inability to get off the floor. Lab Test results independently reviewed as above. Pertinent findings: CBC is unremarkable. White count is 9.6, has chronic stable anemia Chemistries are relatively reassuring. Normal creatinine, sodium, mildly elevated glucose Lactic acid is slightly elevated at 2.3 Total creatinine kinase is slightly elevated at 235 Initial troponin is elevated at 0.060, increasing to .304 ProBNP does not suggest significant congestive heart failure Procalcitonin is significantly elevated at 1.53 TSH is unremarkable Urine shows Independently reviewed EKG sinus rhythm at a rate of 97, nonspecific ST T wave changes, normal intervals normal axis. Repeat EKG in light of increased repeat troponin is absolutely normal. Sinus rhythm without any ST changes Imaging studies independently reviewed: CT scan of the head shows no acute intracranial abnormalities with bony metastases appreciated C-spine chronic findings of canal stenosis no obvious fractures. There is an ill-defined spiculated posterior right apical masslike density appreciated Hip x-ray does not show significant trauma Chest x-ray shows right middle lobe consolidation with superimposed diffuse nodularity. Differential includes infection or new pulmonary metastatic disease. Diffuse osseous metastatic disease is again noted Consultations:Dr Baxter, cardiology. Did need feel that the increase in troponin represented acute coronary syndrome given lack of cardiac symptoms and improving to completely normal EKG. Treatments: IV fluids, ceftriaxone and azithromycin parenterally Discussion: 82-year-old gentleman with significantly altered mental status. It is unclear whether this is his chronic baseline dementia or a dramatic change. 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 At this point he does not appear to have obvious brain metastases. His troponin is elevated with out any cardiac symptoms and normal EKG. Nitrates and anticoagulation are not required nor appropriate at this time. There is no evidence of rhabdomyolysis after lying on the floor for whatever period of time that may have been. There is no evidence of acute trauma at the left hip, area of bruising that appears to be a couple of days old. He has been having multiple falls with increasing frequency. Procalcitonin is slightly elevated and initial lactic acid was slightly elevated. Lactic acid has come down nicely with a L of fluid. Without obvious infectious source initially antibiotics were not started. Given the overall picture and question of altered mental status versus baseline dementia and abnormal chest x-ray will begin ceftriaxone and azithromycin for community-acquired pneumonia. At this time, he does not appear to be septic. The widely metastatic disease with bony lesions appears to be progressing. Question of worsening versus new cancer lesion in his lungs. Patient will be admitted to the hospitalist service for altered mental status, community-acquired pneumonia and elevated troponin of uncertain significance. Care is reviewed with Dr. Richardson and admission is accepted Discharge Plan Departure Patient Disposition: Admitted As Inpatient Clinical Impression: Falling episodes, Elevated troponin CAP (community acquired pneumonia) Qualifiers: Laterality: unspecified laterality Qualified Code(s): J18.9 - Pneumonia, unspecified organism Altered mental status Qualifiers: Altered mental status type: unspecified Qualified Code(s): R41.82 - Altered mental status, unspecified
[2022-10-06 12:40] LABS: Add Manual Diff / Slide Review NO; Basophils Absolute Auto 0 /uL (0-100); Basophils Percent Auto 0.3 % (0-2); Eosinophils Absolute Auto 0 /uL (0-450); Eosinophils Percent Auto 0.2 % (2-4); Hematocrit 31.5 % (41-53); Hemoglobin 10.4 g/dL (13.5-17.5); Lymphocytes Absolute Auto 300 /uL (1100-4500); Lymphocytes Percent Auto 3.3 % (25-40); Mean Corpuscular HGB Conc 33.2 % (30-36); Mean Corpuscular Hemoglobin 27.9 PG (26-34); Monocytes Absolute Auto 600 /uL (0-900); Monocytes Percent Auto 5.9 % (3-14); Neutrophils Absolute Auto 8600 /uL (1500-7000); Neutrophils Percent Auto 90.3 % (50-75); Platelet Count 203 X10^3/uL (150-400); Red Blood Cell Count 3.75 X10^6/uL (4.5-5.9); Red Cell Distribution Width 15.1 % (11.6-14.8); White Blood Cell Count 9.6 X10^3/uL (4.5-11.0)
[2022-10-06 12:46] LABS: Lactate (Lactic Acid) 2.3 mmol/L (0.7-2.1)
[2022-10-06 12:48] LABS: Alanine Aminotransferase 17 IU/L (<50); Albumin 4.1 g/dL (3.5-5.0); Albumin Globulin Ratio 1.4 (1.0-2.8); Alkaline Phosphatase 55 U/L (38-126); Aspartate Aminotransferase 31 IU/L (17-59); BUN Creatinine Ratio 15.1 (6-22); Bilirubin Total 0.6 mg/dL (0.2-1.3); Blood Urea Nitrogen 18 mg/dL (9-20); Calcium 10.2 mg/dL (8.4-10.2); Carbon Dioxide 26 mmol/L (22-32); Chloride 98 mmol/L (98-107); Creatine Kinase 235 U/L (55-170); Estimated Glomerular Filt Rate > 60 mL/min (>60); Glucose 342 mg/dL (80-110); HEMOLYSIS 30 (0-50); Sodium 134 mmol/L (137-145); Total Protein 7.1 g/dL (6.3-8.2)
[2022-10-06 12:59] LABS: NT-proBNP (BNP-Adult 18+) 454 pg/mL (<450)
[2022-10-06] MEDS: SODIUM CHLORIDE 0.9% 1,000 ML 1000 ML IV (13:02)
[2022-10-06 13:04] LABS: Procalcitonin 1.53 ng/mL (<0.5)
[2022-10-06 13:25] LABS: Thyroid Stimulating Hormone 0.541 uIU/mL (0.47-4.68)
[2022-10-06 14:37] LABS: Reflexed Lactate in 2 Hours Y
--- NOTE | 2022-10-06 14:43 | DI.RAD.S_ITS ---
PROCEDURE: XR HIP W PEL IF DONE LT 2V INDICATIONS: fall TECHNIQUE: AP pelvis with lateral view(s) of the left hip(s). COMPARISON: [facility], [place], [place] PET CT FUSION SKULL 2 THIGH, 08/12/2020, 7:27. [facility], [place], XR HIP W PEL IF DONE RT 2V, 07/14/2021, 12:12. FINDINGS: Bones: Extensive tiny sclerotic areas are again noted throughout the bony pelvis, most likely representing blastic metastatic disease. Osteopoikilosis is less likely. Soft tissues: The visualized bowel gas pattern is normal. No suspicious soft tissue calcifications. IMPRESSION: 1. Extensive tiny sclerotic areas present in the pelvis most likely represent unchanged blastic metastatic disease. Osteopoikilosis is less likely. 2. No evidence acute bony abnormality. If clinical suspicion and/or symptoms persist, further assessment with repeat plain films, or advanced imaging (e.g., CT, MRI, or bone scan) may be helpful for further assessment. Dictated by: Edgard Ramires M.D. on 10/06/2022 at 15:18 Approved by: Edgard Ramires M.D. on 10/06/2022 at 15:26
--- NOTE | 2022-10-06 14:43 | DI.RAD.S_ITS ---
PROCEDURE: XR CHEST 1V INDICATIONS: tachycardia, elevated trop TECHNIQUE: One view of the chest was acquired. COMPARISON: [facility], CT, CT CHEST WITH CONTRAST, 07/06/2022, 13:01. [facility], CT, CT CERVICAL SPINE WO CON, 10/06/2022, 14:57. [facility], [place], CHEST 2 VIEW, 12/24/2008, 16:06. FINDINGS: Surgical changes and devices: None. Lungs and pleura: Right mid lung zone consolidation. Superimposed diffuse nodularity. Mediastinum: Mediastinal contours appear normal. Heart size is normal. Bones and chest wall: Heterogeneous attenuation of the bones, consistent with metastatic disease. IMPRESSION: Right middle lobe consolidation, with superimposed diffuse nodularity. Differential includes infection or new pulmonary metastatic disease. Consider further evaluation with CT. Diffuse osseous metastatic disease. Dictated by: Steven Oconnor M.D. on 10/06/2022 at 15:16 Approved by: Steven Oconnor M.D. on 10/06/2022 at 15:18
--- NOTE | 2022-10-06 14:43 | DI.CT.S_ITS ---
PROCEDURE: CT HEAD/BRAIN WO CON INDICATIONS: multiple falls, increased confusion, TECHNIQUE: Noncontrast 4.5 mm thick angled axial sections acquired from the foramen magnum to the vertex, with coronal and sagittal reformats. For radiation dose reduction, the following was used: automated exposure control, adjustment of mA and/or kV according to patient size. COMPARISON: [facility], CT, CT CHEST ABD PEL W CON, 07/09/2020, 12:59. FINDINGS: Image quality: Excellent. CSF spaces: Basal cisterns are patent. No extra-axial fluid collections. The ventricles are symmetric in size and shape. Brain: No intracranial bleeds or masses. There is cerebral volume loss for age, with resultant ventricular and sulcal prominence. There are moderate periventricular and deep white matter chronic small vessel ischemic changes. There is intracranial internal carotid artery atherosclerosis. Skull and face: Multiple small blastic lesions are present in the base of the skull, as well as C1 and the clivus consistent with known blastic bony metastatic disease. Sinuses: Visualized sinuses and mastoids are clear. IMPRESSION: 1. No acute intracranial process. 2. Bony blastic metastatic disease. 3. No acute intracranial process. Dictated by: Edgard Ramires M.D. on 10/06/2022 at 15:13 Approved by: Edgard Ramires M.D. on 10/06/2022 at 15:17
--- NOTE | 2022-10-06 14:48 | DI.CT.S_ITS ---
PROCEDURE: CT CERVICAL SPINE WO CON INDICATIONS: multiple falls, altered mental status TECHNIQUE: Noncontrast 3 mm thick sections acquired from the skull base to the T4 level. Sagittal and coronal reformats were then constructed. For radiation dose reduction, the following was used: automated exposure control, adjustment of mA and/or kV according to patient size. COMPARISON: [facility], CT, CT CHEST WITH CONTRAST, 07/06/2022, 13:01. FINDINGS: Image quality: Excellent. Bones: No fractures or dislocations. Visualized superior ribs are intact. Extensive small sclerotic areas throughout the cervical spine and other visualized bony structures consistent blastic metastatic disease. Cervical spondylitic change. There is canal stenosis C2-C3, C3-C4, and C6-C7. There is multilevel bony foraminal narrowing. Soft tissues: Prevertebral soft tissues are normal in thickness. No paravertebral hematomas. No apical pneumothoraces. Stable appearance of ill-defined spiculated posterior right apical masslike density. IMPRESSION: 1. No acute cervical fracture or dislocation. 2. Findings insensate with diffuse involvement by blastic metastatic disease. 3. Cervical spondylosis with multilevel canal stenosis and multilevel foraminal narrowing. 4. Unchanged ill-defined spiculated posterior left apical masslike density. Dictated by: Edgard Ramires M.D. on 10/06/2022 at 15:26 Approved by: Edgard Ramires M.D. on 10/06/2022 at 15:30
[2022-10-06 15:02] LABS: Troponin I 0.304 ng/mL (0.01-0.034)
[2022-10-06 15:21] LABS: Lactate 2HR (Lactic Acid Rflx) 1.4 mmol/L (0.7-2.1)
[2022-10-06] MEDS: AZITHROMYCIN 500 MG in DEXTROSE 5% IN WATER 250 ML 250 MG IV (17:06)
--- NOTE | 2022-10-06 17:20 | PC.NURSE ---
Called report to MANUEL Francisco
[2022-10-06 17:26] LABS: Magnesium 1.6 mg/dL (1.6-2.3)
[2022-10-06] MEDS: INSULIN LISPRO 100 UNIT/ML 3ML VIAL SUBCUT (18:51)
[2022-10-06] MEDS: SODIUM CHLORIDE 0.9% 1,000 ML 125 ML IV (18:51)
[2022-10-06] MEDS: ENOXAPARIN 40 MG/0.4 ML SYRINGE SUBCUT (18:51)
[2022-10-06] MEDS: MAGNESIUM CHLORIDE 64 MG TABLET 128 MG PO (18:54)
[2022-10-06] MEDS: cefTRIAXone 2,000 MG in SODIUM CHLORIDE 0.9% 100 ML 200 MG IV (20:14)
[2022-10-06] MEDS: DONEPEZIL 5 MG TABLET PO (21:41)
--- NOTE | 2022-10-06 23:56 | P.HP_ITS ---
History of Present Illness History of Present Illness Date Patient Seen: 10/06/22 (Seen by day hospitalist) Chief complaint: GLF Narrative: 82 y/o with PMH of Squamous cell lung carcinoma, on no current treatment, followed by oncology for possible involvement in trial, sustained GLF at home. He was found down in the bathroom. He likely spent several hours on the floor. Brought to hospital confused with workup revealing RML PNA, possibly postobstructive> Started on abx and admitted earlier today by day hospitalist. 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 Brother No problems noted. Brother Diabetes mellitus Sister No problems noted. Social History marital status: household members: spouse lives independently: Yes Smoking Status: Former smoker alcohol intake: former Meds Home Medications and Allergies Home Medications Medication Instructions Recorded Confirmed Type aspirin 81 mg tablet,delayed 81 mg PO DAILY 11/20/18 10/06/22 History release blood-glucose meter (Accu-Chek #1 ea 05/19/21 10/06/22 Rx Guide Glucose Meter) lancets for glucose checks #1 packet 06/08/21 10/06/22 Rx blood sugar diagnostic (Accu-Chek #100 ea 06/30/21 10/06/22 Rx Wandy Plus test strips) lancets (Accu-Chek Softclix #100 ea 07/23/21 10/06/22 Rx Lancets) metformin 1,000 mg tablet 1,000 mg PO BID #180 tabs 01/17/22 10/06/22 Rx donepezil 5 mg tablet 5 mg PO BEDTIME #90 tabs 09/30/22 10/06/22 Rx amoxicillin 500 mg capsule 500 mg PO 3XD 10/06/22 10/06/22 History chlorhexidine gluconate 0.12 % 15 ml PO DAILY 10/06/22 10/06/22 History mouthwash Allergies Allergy/AdvReac Type Severity Reaction Status Date / Time No Known Drug Allergies Allergy Verified 10/06/22 10:51 Exam Vital Signs (past 8 hours): - 10/06/22 16:00 10/06/22 16:30 10/06/22 17:00 Temperature Pulse Rate 84 81 79 Respiratory Rate 25 H 20 28 H Blood Pressure Pulse Oximetry 96 97 98 Oxygen Flow Rate 10/06/22 17:18 10/06/22 17:18 10/06/22 19:54 Temperature 97.2 F L Pulse Rate 77 76 Respiratory Rate 23 18 Blood Pressure 115/56 L 128/50 L Pulse Oximetry 99 98 Oxygen Flow Rate 0 Oxygen Delivery Method Room Air Oxygen Flow Rate 0 Objective Labs 10/06/22 10:50 10/06/22 10:50 Labs: Laboratory Results - last 24 hr 10/06/22 10/06/22 10/06/22 10:50 10:50 10:50 WBC 9.6 RBC 3.75 L Hgb 10.4 L Hct 31.5 L MCV 84.0 MCH 27.9 MCHC 33.2 RDW 15.1 H Plt Count 203 Neut % (Auto) 90.3 H Lymph % (Auto) 3.3 L Bullock % (Auto) 5.9 Eos % (Auto) 0.2 L Baso % (Auto) 0.3 Neut # (Auto) 8600 H Lymph # (Auto) 300 L Bullock # (Auto) 600 Eos # (Auto) 0 Baso # (Auto) 0 Sodium 134 L Potassium 4.0 Chloride 98 Carbon Dioxide 26 BUN 18 Creatinine 1.19 Estimated GFR > 60 BUN/Creatinine Ratio 15.1 Glucose 342 H Lactate 2.3 H Calcium 10.2 Magnesium Total Bilirubin 0.6 AST 31 ALT 17 Alkaline Phosphatase 55 Total Creatine Kinase 235 H Troponin I 0.060 H NT-Pro-B Natriuret Pep 454 H Total Protein 7.1 Albumin 4.1 Globulin 3.0 Albumin/Globulin Ratio 1.4 Procalcitonin 1.53 H TSH Urine Color Urine Appearance Urine pH Ur Specific Eagan Urine Protein Urine Glucose (UA) Urine Ketones Urine Occult Blood Urine Nitrate Urine Bilirubin Urine Urobilinogen Ur Leukocyte Esterase Urine RBC Urine WBC Ur Squamous Epith Cells Urine Bacteria Hyaline Casts 10/06/22 10/06/22 10/06/22 10:50 10:50 14:07 WBC RBC Hgb Hct MCV MCH MCHC RDW Plt Count Neut % (Auto) Lymph % (Auto) Bullock % (Auto) Eos % (Auto) Baso % (Auto) Neut # (Auto) Lymph # (Auto) Bullock # (Auto) Eos # (Auto) Baso # (Auto) Sodium Potassium Chloride Carbon Dioxide BUN Creatinine Estimated GFR BUN/Creatinine Ratio Glucose Lactate Calcium Magnesium 1.6 Total Bilirubin AST ALT Alkaline Phosphatase Total Creatine Kinase Troponin I 0.304 H* NT-Pro-B Natriuret Pep Total Protein Albumin Globulin Albumin/Globulin Ratio Procalcitonin TSH 0.541 Urine Color Urine Appearance Urine pH Ur Specific Eagan Urine Protein Urine Glucose (UA) Urine Ketones Urine Occult Blood Urine Nitrate Urine Bilirubin Urine Urobilinogen Ur Leukocyte Esterase Urine RBC Urine WBC Ur Squamous Epith Cells Urine Bacteria Hyaline Casts 10/06/22 10/06/22 14:32 14:50 WBC RBC Hgb Hct MCV MCH MCHC RDW Plt Count Neut % (Auto) Lymph % (Auto) Bullock % (Auto) Eos % (Auto) Baso % (Auto) Neut # (Auto) Lymph # (Auto) Bullock # (Auto) Eos # (Auto) Baso # (Auto) Sodium Potassium Chloride Carbon Dioxide BUN Creatinine Estimated GFR BUN/Creatinine Ratio Glucose Lactate 1.4 Calcium Magnesium Total Bilirubin AST ALT Alkaline Phosphatase Total Creatine Kinase Troponin I NT-Pro-B Natriuret Pep Total Protein Albumin Globulin Albumin/Globulin Ratio Procalcitonin TSH Urine Color Yellow Urine Appearance Clear Urine pH 6.0 Ur Specific Eagan 1.020 Urine Protein Trace H Urine Glucose (UA) 2+ H Urine Ketones 1+ H Urine Occult Blood 1+ H Urine Nitrate Negative Urine Bilirubin Negative Urine Urobilinogen 0.2 Ur Leukocyte Esterase Negative Urine RBC 0-1/hpf Urine WBC 0-1/hpf Ur Squamous Epith Cells 0-1 /hpf Urine Bacteria None seen Hyaline Casts 0-1/lpf Assessment & Plan Assessment and plan (1) CAP (community acquired pneumonia): Qualifiers: Laterality: unspecified laterality Qualified Code(s): J18.9 - Pneumonia, unspecified organism Status: Acute (2) Altered mental status: Qualifiers: Altered mental status type: unspecified Qualified Code(s): R41.82 - Altered mental status, unspecified Status: Acute (3) Falling episodes: Status: Acute (4) Essential hypertension: Status: Chronic (5) Type 2 diabetes mellitus without complication: Qualifiers: Diabetes mellitus halfway insulin use: without halfway use Qualified Code(s): E11.9 - Type 2 diabetes mellitus without complications Status: Chronic (6) Primary lung squamous cell carcinoma: Status: Acute (7) Prostate carcinoma: Status: Acute (8) Elevated troponin: Status: Acute Plan Admitted for iv abx. Assessment & Plan narrative: 1. RML, CAP - started Rocephin and Zithromax - could be postobstructive - not septic 2. DM - diabetic diet, SS 3. Prostate carcinoma with bone metastases 4. Elevated troponin - non-ischemic as per real estate legal secretary, type 2 5. Dementia - Aricept. Likely metabolic encephalopathy due to PNA. Supportive care. Quality VTE Deep Vein Thrombosis/Pulmonary Embolism Present on Admission: No
[2022-10-07] VITALS: BP 146/56; PULSE 82; RESP 20; TEMP 36.1; O2SAT 99
[2022-10-07 03:16] LABS: x Labcorp Estim. Avg Glu (eAG) 177 mg/dL (.); x Labcorp Hemoglobin A1c 7.8 % (4.8-5.6)
[2022-10-07 06:19] VITALS: BP 141/55; PULSE 68; RESP 17; TEMP 36.4; O2SAT 98
[2022-10-07 06:26] LABS: Add Manual Diff / Slide Review NO; Basophils Absolute Auto 0 /uL (0-100); Basophils Percent Auto 0.4 % (0-2); Eosinophils Absolute Auto 100 /uL (0-450); Hematocrit 25.2 % (41-53); Hemoglobin 8.5 g/dL (13.5-17.5); Lymphocytes Absolute Auto 1000 /uL (1100-4500); Lymphocytes Percent Auto 13.8 % (25-40); Mean Corpuscular HGB Conc 33.8 % (30-36); Mean Corpuscular Hemoglobin 28.2 PG (26-34); Mean Corpuscular Volume 83.4 fL (80-100); Monocytes Absolute Auto 400 /uL (0-900); Neutrophils Absolute Auto 5700 /uL (1500-7000); Neutrophils Percent Auto 78.8 % (50-75); Platelet Count 171 X10^3/uL (150-400); Red Blood Cell Count 3.02 X10^6/uL (4.5-5.9); Red Cell Distribution Width 14.8 % (11.6-14.8); White Blood Cell Count 7.2 X10^3/uL (4.5-11.0)
[2022-10-07 06:48] LABS: BUN Creatinine Ratio 15.4 (6-22); Blood Urea Nitrogen 16 mg/dL (9-20); Carbon Dioxide 30 mmol/L (22-32); Chloride 101 mmol/L (98-107); Estimated Glomerular Filt Rate > 60 mL/min (>60); Glucose 186 mg/dL (80-110); HEMOLYSIS < 15 (0-50); Potassium 3.4 mmol/L (3.4-5.1); Sodium 135 mmol/L (137-145)
[2022-10-07 06:50] LABS: Magnesium 1.8 mg/dL (1.6-2.3)
[2022-10-07 07:04] LABS: Procalcitonin 8.94 ng/mL (<0.5)
[2022-10-07 07:45] LABS: Troponin I 0.487 ng/mL (0.01-0.034)
[2022-10-07 08:12] VITALS: BP 139/57; PULSE 62; RESP 16; TEMP 36.6; O2SAT 96
[2022-10-07] MEDS: ASPIRIN EC 81 MG TABLET PO (08:24)
[2022-10-07] MEDS: ENOXAPARIN 40 MG/0.4 ML SYRINGE SUBCUT (08:24)
[2022-10-07] MEDS: INSULIN LISPRO 100 UNIT/ML 3ML VIAL SUBCUT ×2 (08:24→10:57)
--- NOTE | 2022-10-07 09:12 | OT.IP.EVAL ---
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) Colon polyps Diabetes mellitus Diarrhea Hyperlipidemia Lung cancer 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 Assist for house cleaning. Children (2) son's stop by weekly to offer assist, and daughter/ granddaughter live upstairs in the home. Prior Functional Level (Other details) Son states he mows the lawn. Pt states he walks with spouse . Social History Household Members spouse Living Arrangements House Number of Floors (Floors) Two Floors Number of Stairs To Enter/Railing? 3 steps with bilateral railings. Home Environment Standard Height Toilet,Walk in Shower Employment Status Retired Additional Social History Comment Lives with spouse who has walker. M2 OT-IP Current Condition Start: 10/07/22 11:24 Freq: Status: Active Protocol: Document 10/07/22 11:24 CGR (Rec: 10/07/22 11:45 CGR [id number]) Occupational Therapy Current Condition Current Condition Evaluation Date 10/07/22 Treatment Diagnosis found down in shower, PNA Diagnosis Onset Date 10/06/22 M3 OT- IP Subjective and Pain Start: 10/07/22 11:24 Freq: Status: Active Protocol: Document 10/07/22 11:24 CGR (Rec: 10/07/22 11:45 CGR [id number]) OT- Subjective Occupational Therapy Visit Type Type Initial Evaluation Visit Start Time 08:39 Visit Stop Time 09:12 Total Visit Minutes 33 Notes co-treat with P.T. OT Pain Assessment Pain When Pain Assessed At Rest Pain Present Pain Present Denied Pain M4 OT- IP ADL's Start: 10/07/22 11:24 Freq: Status: Active Protocol: Document 10/07/22 11:24 CGR (Rec: 10/07/22 11:45 CGR [id number]) OT [id number]-Tibadms Comments OT Self-Feeding Comments not meal time OT ADL-Grooming General Evaluation Grooming Ability Standby Assistance Areas Needing Assistance Face Washing Comments OT Grooming Comments standing at sink OT ADL-Oral Care General Eval Oral Care Ability Minimal Assistance Areas of Assistance Brushing Teeth Comments Oral Care Comments standing at sink OT ADL-Dressing General Eval Lower Body Dressing Ability Independent Areas Needing Assistance Socks Comments OT Dressing Comments Pt doffed and donned socks seated in chair. OT ADL-Toileting General Evaluation Toileting Ability Standby Assistance Comments OT Toileting Comments seated on toilet OT ADL-Bathing Comments OT Bathing Comments not performed M5 OT- IP IADL's Start: 10/07/22 11:24 Freq: Status: Active Protocol: Document 10/07/22 11:24 CGR (Rec: 10/07/22 11:45 CGR [id number]) OT-Instrumental Activities of Daily Living Deficits IADL Deficits Identified Deficits Home Safety Awareness Awareness of Need for Assistance at Home Decreased Awareness Ability to Problem Solve Emergency Unable to Problem Solve Situations Medication Management Medication Management Caregiver Administers Medication Management Comments Pt's daughter performs Money Management Money Management Caregiver Provides Assistance Money Management Comments Pt's daughter performs Meal Preparation Meal Preparation Caregiver Provides Assist Meal Preparation Comments Pt's daughter performs Enterer Enterer No Deficits Identified Driving Driving Comments Pt states that he gave up driving. M6 OT- IP Functional Cognition Start: 10/07/22 11:24 Freq: Status: Active Protocol: Document 10/07/22 11:24 CGR (Rec: 10/07/22 11:45 CGR [id number]) Cognitive Factors Limiting Selfcare Function Cognitive Ability Level of Alertness Alert,Confusional State Patient Orientation Name,Birthday,Place Attention Span Ability Unable to Focus,Unable to Sustain Attention Ability to Follow Commands Able to Follow One Step Commands with Increased Time, Able to Follow One Step Commands with Repetition Cognitive Comments Cognitive Assessment Comments Per son, who entered the room later, states that his father is currently at his baseline for cognition. OT- Vision and Hearing OT- Hearing Assessment OT- Hearing Assessment WFL OT- Vision Assessment Visual Acuity WFL Visual Attentiveness WFL Occular Pursuits WFL Visual Convergence WFL M7 OT- IP Mobility and Balance Start: 10/07/22 11:24 Freq: Status: Active Protocol: Document 10/07/22 11:24 CGR (Rec: 10/07/22 11:45 CGR [id number]) OT- Bed Mobility Assessment Supine to Sit Supine to Sit Assist Moderate Assistance OT-Transfer Assessment Sit to and From Stand Sit to and from Stand Contact Guard Assistance, Minimal Assistance Transfers Transfer Ability Contact Guard Assistance, Minimal Assistance Technique Transfer Destination Bed,Chair,Toilet Transfer Technique Stand Step Pivot Devices Transfer Assistive Devices Gait Belt Comments Mobility Comments Pt ambulated out in the [place] with P.T. then back into the room for toielting and ADLs standing. OT- Gait Assessment Comments Gait Ability Comments see p.t. note OT- Balance Assessment Sitting Balance and Reactions Static Sitting Balance Ability Normal Dynamic Sitting Balance Ability Normal M8 OT- IP Objective Assessments Start: 10/07/22 11:24 Freq: Status: Active Protocol: Document 10/07/22 11:24 CGR (Rec: 10/07/22 11:45 CGR [id number]) OT Gross Range of Motion Upper Extremity Range of Motion Assessment Within Functional Limits OT Strength Upper Extremity Strength Assessment Within Functional Limits Comments Strength Comments 5/5 OT- Coordination Assessment Upper Extremity Finger to Nose Test Within Functional Limits Finger Tapping Test Within Functional Limits OT-Muscle Tone Assessment Muscle Tone WNL Yes OT Sensation Assessment Edema Edema Absent M9 OT- IP Assessment and Plan Start: 10/07/22 11:24 Freq: Status: Active Protocol: Document 10/07/22 11:24 CGR (Rec: 10/07/22 11:45 CGR [id number]) OT Summary Assessment and Plan Potential Rehabilitation Potential Good Analytic Complexity at Evaluation Low Summary OT Impairments Pain,Balance,Functional Cognition Progress Towards Goals Progressing Toward Goals Assessment Summary Pt presents as a low complexity evaluation s/p admit for fall in shower. Pt found to have PNA. Pt appears to be at or close to his baseline but may benefit from continued OT services. Recommend discharge home with family support and home health OT and P.T. services. Goals Grooming Goal Independent Dressing Goal Independent Toileting Goal Independent Bathing Goal Independent Toilet Transfer Goal Independent Shower Transfer Goal Independent Days to Meet Goals 5 Frequency of Treatment Frequency Of Treatment Once a Day Treatment Plan OT Treatment Plan ADL Training,Functional Cognition Training,Functional Mobility,Patient/Family Education,Discharge Planning Other Treatment Recommendations and Next shower Treatment Focus Discharge Recommendations OT Discharge Recommendations Home with Assistance Transportation Needs at Discharge Private Vehicle
--- NOTE | 2022-10-07 09:42 | PT.IIE ---
Current Diagnoses Malignant neoplasm of unspecified part of unspecified bronchus or lung (10/06/22) Malignant neoplasm of prostate (10/06/22) Type 2 diabetes mellitus without complications (10/06/22) Essential (primary) hypertension (10/06/22) Pneumonia, unspecified organism (10/06/22) Repeated falls (10/06/22) Altered mental status, unspecified (10/06/22) Other specified abnormalities of plasma proteins (10/06/22) Surgical History (Last Reviewed 10/07/22 @ 00:01 by Marcio Ortiz MD) History of colonoscopy with polypectomy (03/25/13) History of laminectomy (1979) Medical History (Last Reviewed 10/07/22 @ 00:01 by Marcio Ortiz MD) Abnormal CXR (chest x-ray) (1977) 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 Assist for house cleaning. Children (2) son's stop by weekly to offer assist, and daughter/ granddaughter live upstairs in the home. Prior Functional Level (Other details) Son states he mows the lawn. Pt states he walks with spouse . Social History Household Members spouse Living Arrangements House Number of Floors (Floors) Two Floors Number of Stairs To Enter/Railing? 3 steps with bilateral railings. Home Environment Standard Height Toilet,Walk in Shower Employment Status Retired Additional Social History Comment Lives with spouse who has walker. M2 PT-IP Current Condition Start: 10/07/22 08:17 Freq: NEEDED Status: Active Protocol: Document 10/07/22 09:13 LRN (Rec: 10/07/22 09:39 LRN [id number]) Physical Therapy Current Condition Current Condition Evaluation Date 10/07/22 Treatment Diagnosis GLF, decreased endurance and stability with gait. M3 PT-IP Subjective Start: 10/07/22 08:17 Freq: NEEDED Status: Active Protocol: Document 10/07/22 09:13 LRN (Rec: 10/07/22 09:39 LRN [id number]) Subjective Physical Therapy Visit Type Type Initial Evaluation Visit Start Time 08:30 Visit Stop Time 09:10 Total Visit Minutes 40 Physical Therapy Visit Comments Patient Comments Pt states he is expecting to go home today. Patient Goals Pt goal is to return to walking and be dicharged home. Therapy Pain Assessment Pain When Pain Assessed During Mobility Pain Present Pain Present Pain Reported Location L hip Intensity 4 Scale Used Numeric (0 - 10) M4 PT-IP Mobility and Gait Start: 10/07/22 08:17 Freq: NEEDED Status: Active Protocol: Document 10/07/22 09:13 LRN (Rec: 10/07/22 09:39 LRN [id number]) PT-Bed Mobility Assessment Rolling Level of Assist Independent Supine to Sit Supine to Sit Minimal Assistance Scooting Scooting to Edge of Bed Independent PT-Transfer Assessment Sit to and From Stand Sit to and from Stand Minimal Assistance Equipment Transfer Assistive Device Gait Belt Transfers Transfer Destination Chair Transfer Technique Walked to chair after gait Transfer Ability Level of Assist Independent Comments Mobility Comments Sit>Stand: 2-3 rockings before attempting stand from normal bed setting hgt. Stand>Sit: uncontrolled, independent. Gait Assessment Gait Gait Assistance Required: Contact Guard Assist,Minimum Assistance Distance (Feet) 325 Able to Maintain Weight Bearing Status Yes During Gait Assistive Devices Assistive Device None Gait Deviations General Gait Pattern Decreased Stride Length, Lateral Trunk Lean,Narrow Based Gait Comments Gait Comments Pt is impulsive at times leading to mild instability with gait; therefore showing lack of safety awareness. Stair Climbing Assessment Evaluation Level of Assist On Stairs Standby Assistance Devices Stair Climbing Assistive Devices Left Railing,Right Railing Technique/Endurance Stair Climbing Direction Ascend and Descend Stair Climbing Technique Step Over Step Number of Steps Climbed 3 Query Text: Stair Climbing Set # Repetitions (reps) 1 Comments Stair Climbing Comments Decreased ability to control descent, showing signs of weakness/instability. Use of rails provided balance assist. PT-Balance Assessment Sitting Balance and Reactions Static Sitting Balance Ability Normal Dynamic Sitting Balance Ability Normal Standing Balance and Reactions Static Standing Balance Ability Good Dynamic Standing Balance Ability Fair M5 PT-IP Objective Assessments Start: 10/07/22 08:17 Freq: NEEDED Status: Active Protocol: Document 10/07/22 09:13 LRN (Rec: 10/07/22 09:39 LRN [id number]) Orientation Orientation/Cognition Level of Alertness Confusional State Orientation Name,Day of Week Language Function Ability No Deficits Noted Safety Awareness Decreased Safety Awareness Gross Range of Motion Upper Extremity ROM Assessment Within Functional Limits Lower Extremity ROM Assessment Within Functional Limits Strength Upper Extremity Strength Assessment Within Functional Limits Lower Extremity Strength Assessment Within Functional Limits Sensation Assessment Sensation Gross Sensation WNL Muscle Tone Muscle Tone WNL Yes M6 PT-IP Treatment Start: 10/07/22 08:17 Freq: NEEDED Status: Active Protocol: Document 10/07/22 09:13 LRN (Rec: 10/07/22 09:41 LRN [id number]) Physical Therapy Treatment Other Treatments Other Treatment Performed Transfer training supine>sit. M7 PT-IP Assessment and Plan Start: 10/07/22 08:17 Freq: NEEDED Status: Active Protocol: Document 10/07/22 09:13 LRN (Rec: 10/07/22 09:39 LRN [id number]) PT Summary Assessment and Plan Potential Rehabilitation Potential Excellent Status of Condition at Evaluation Evolving Summary Impairments Pain,Balance,Cognition,Bed Mobility,Transfers,Activity Tolerance Assessment Summary PT is an 82 yo male who suffered a GLF. Son states mother told him he was found in the shower and could not get himself up and was confused. Records indicate he possibly spent several hrs on the floor. The pt demonstrates confusion of location and date but was very pleasant and cooperative. He had difficulty with supine> sit transfer, needing Rebecca. He needed assist with sit> stand and was uncontrolled with stand>sit; therefore transfer training is needed. The pt was able to ambulate without an assistive device, but due to occasional impulsive quick behavior CGA> Rebecca was needed for balance/ safety with gait. The pt appears to have help at home; therefore expect he will be able to go home with his family to assist. Ongoing evaluation will be needed as to safety and specific assist needs for DC. Goals Bed Mobility Goal Independent Transfer Goal Independent,Standby Assistance Gait Goal Independent,Standby Assistance Gait Distance 100' Days to Meet Goals 1 Frequency of Treatment Frequency Of Treatment Twice a Day Treatment Plan Physical Therapy Treatment Plan Bed Mobility Training,Transfer Training,Gait Training Other Recommendations and Next Treatment Pt education in use of Focus cryotherapy for L hip pain. Weight Bearing Status Weight Bearing Status Full Weight Bearing Recommendations To Nursing Amount of Assist Needed Standby Assistance,1 Person Assist Discharge Recommendations PT Discharge Recommendations Home with Assistance Transportation Needs at Discharge Private Vehicle
[2022-10-07] MEDS: AZITHROMYCIN 250 MG TABLET 500 MG PO (10:31)
[2022-10-07] MEDS: cefTRIAXone 2,000 MG in SODIUM CHLORIDE 0.9% 100 ML 200 MG IV (10:31)
--- NOTE | 2022-10-07 11:22 | ST.IPIE ---
Visit Care Team Role Provider Type Mirza Escalante MD Primary Care Provider Physician Specialty: Family Practice Address: [address] [place] [address], [id number] Email: [email or web address] Radha Storey MD Emergency Provider Physician Referring Provider Specialty: Emergency Medicine Address: [address] [place] [address], [id number] Email: Naseem Richardson DO Admit Provider Physician Attending Provider Specialty: Internal Medicine Address: [address] [place] [address], [id number] Email: [email or web address] Current Diagnoses Malignant neoplasm of unspecified part of unspecified bronchus or lung (10/06/22) Malignant neoplasm of prostate (10/06/22) Type 2 diabetes mellitus without complications (10/06/22) Essential (primary) hypertension (10/06/22) Pneumonia, unspecified organism (10/06/22) Repeated falls (10/06/22) Altered mental status, unspecified (10/06/22) Other specified abnormalities of plasma proteins (10/06/22) Past Medical History (Last Reviewed 10/07/22 @ 00:01 by Marcio Ortiz MD) Abnormal CXR (chest x-ray) (Medical 1977) 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) Colon polyps (Medical) Diabetes mellitus (Medical) Diarrhea (Medical) Hyperlipidemia (Medical) Lung cancer (Medical) 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 malignant neoplasm to prostate (Medical) Rectal discomfort (Medical) Sacroiliitis (Medical) ST IP Initial Evaluation Report 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 Adult Cognitive Linguistic Eval Start: 10/07/22 10:38 Freq: Status: Active Protocol: Document 10/07/22 10:39 CG (Rec: 10/07/22 10:54 CG [id number]) Adult Cognitive Linguistic Evaluation Session Time Visit Start Time 10:10 Visit Stop Time 10:33 Total Visit Minutes 23 Visit Information Visit Number 1 Referral Referring Provider Naseem Richardson Reason for Referral AMS Setting Assessment Location Acute Care Visit Type Note Type Initial evaluation Patient Information Identification Type Name Patient History Per H&P: 82 y/o with PMH of Squamous cell lung carcinoma, on no current treatment, followed by oncology for possible involvement in trial, sustained GLF at home. He was found down in the bathroom. He likely spent several hours on the floor. Brought to hospital confused with workup revealing RML PNA, possibly postobstructive> Started on abx and admitted earlier today by day hospitalist. Pt is referred to for cognitive evaluation to determine current cognitive level. Education Level GED obtained after high school Hearing Hearing Level Normal Previous Therapy Previous Speech-Language Therapy No: No known hx speech therapy History of Therapy No known history of speech therapy treatment. Subjective Patient Report Pt was seated upright in chair at bedside upon entry to room, with family member present. Pt was pleasant and cooperative, though confused, throughout evaluation. He was able to engage in basic conversation and demonstrated appropriate pragmatic language skills based on circumstance. He did report that he was experiencing neck pain whenever he turned his head, which concerned his family member. She asked about obtaining an X-ray given this pain. 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 consulted with Dr. Richardson who stated the pt had already had a neck CT to rule out any issues, and would go back and explain this to family. Location Neck Mental Status Alert,Responsive,Cooperative, Confused Assessment Oral Motor Examination Completed No: Oral motor structure and function appear WFL Results Based on pt's age, oral motor structure and function appear WFL for age. Speech is clear and intelligible. No difficulty with saliva management. Informal Assessment Receptive Language Normal No Receptive Language Impairment(s) Following 2-step commands, Comprehension of conversation Expressive Language Normal Yes Pragmatic Language Normal Yes Speech Normal Yes Cognition Normal No Cognitive Impairment(s) Orientation,Attention,Short- term memory,Long-term memory, Executive functioning,Problem solving,Thought organization, Safety awareness Formal Assessment Standardized Test/Screener Type [facility] Mental Status (UMS) Administration Complete Results Pt scored an 11/30 on the SLUMS, which is indicative of dementia. Pt was previously given the MMSE in the fall of 2021, on which he scored a 22/ 30. On average (according to Alexa DM, Jorge KM, Wilson RM, et al) MMSE scores are approximately 5 points higher than SLUMS scores. Given the score discrepancy is greater than 5 points, the new SLUMS score likely indicates a decline in cognitive function since evaluation with MMSE. It is unclear if this is due to AMS secondary to acute illness or due to a progression of pt's dementia. Findings/Results Language Function Mildly impaired Cognitive Function Moderately-severely impaired Findings Pt demonstrates moderate- severe cognitive impairment characterized by receptive language impairment affecting pt's ability to understand and execute multi-step directions . Pt presents with deficits in orientation (only oriented to person), short term memory, correction memory, and divergent naming. He and his were receptive to suggestions to utilize external visual aids such as whiteboard and clock in the room in order to increase orientation. Cognitive Communication Deficits Self-awareness of Cognitive- Situational awareness ( Communication Deficits recognition of problem in context;in real time) Impact on Functioning Activity Limits/Particip.Rest. Mod: General Tasks and Demands Household Tasks Interpersonal Interactions Sev: Community Safety Risks Sev: Being Left Alone at Home Reacting to Emergency Managing Medication Traveling Alone in Community Prognosis Prognosis Guarded Based on Cognitive status,Comorbidities Plan of Care Speech-Language Treatment No Patient/Caregiver Education Described results of evaluation,Family/caregivers expressed understanding of evaluation Discharge Recommendations ferry terminal supervisor care facility,Home with Home Health
--- NOTE | 2022-10-07 11:25 | PT.IPTN ---
Current Diagnoses Malignant neoplasm of unspecified part of unspecified bronchus or lung (10/06/22) Malignant neoplasm of prostate (10/06/22) Type 2 diabetes mellitus without complications (10/06/22) Essential (primary) hypertension (10/06/22) Pneumonia, unspecified organism (10/06/22) Repeated falls (10/06/22) Altered mental status, unspecified (10/06/22) Other specified abnormalities of plasma proteins (10/06/22) Physical Therapy Treatment Note M2 PT-IP Current Condition Start: 10/07/22 08:17 Freq: NEEDED Status: Active Protocol: Document 10/07/22 09:13 LRN (Rec: 10/07/22 09:39 LRN [id number]) Physical Therapy Current Condition Current Condition Evaluation Date 10/07/22 Treatment Diagnosis GLF, decreased endurance and stability with gait. 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 Patient Goals Pt goal is to return to walking and be dicharged home. M4 PT-IP Mobility and Gait Start: 10/07/22 08:17 Freq: NEEDED Status: Active Protocol: Document 10/07/22 11:42 TS (Rec: 10/07/22 11:55 TS [id number]) PT-Transfer Assessment Sit to and From Stand Sit to and from Stand Standby Assistance Equipment Transfer Assistive Device Gait Belt Comments Mobility Comments Sit to stand from chair SBA with no AD, pt pushing from arms of chair to stand, required cues to scoot forward before standing. He ambulated ~225' SBA initially with no AD required SPC due to unsteadiness and poor balance, pt had x1LOB, required Emmanuel for correction without AD. He performed stairs SBA with LUE SPC support and handrail assist, no buckling or LOB. Pt was left back in room with spouse, all needs met, RN notified. Gait Assessment Gait Gait Assistance Required: Standby Assistance,Minimum Assistance,1 Person Assist Distance (Feet) 225 Able to Maintain Weight Bearing Status Yes During Gait Assistive Devices Assistive Device None,Straight Cane Gait Deviations General Gait Pattern Decreased Stride Length, Lateral Trunk Lean,Narrow Based Gait Factors Limiting Gait Function Factors Limiting Gait Function Decreased Activity Tolerance, Decreased Strength,Difficulty Following Directions, Incoordination,Poor Balance, Poor Safety Awareness Comments Gait Comments Pt initially ambulating with no AD in room, had x1LOB requiring Emmanuel, continued gait with use of SPC. Stair Climbing Assessment Evaluation Level of Assist On Stairs Standby Assistance Devices Stair Climbing Assistive Devices Left Railing,Right Railing Technique/Endurance Stair Climbing Direction Ascend and Descend Stair Climbing Technique Step Over Step Number of Steps Climbed 3 Stair Climbing Set # Repetitions (reps) 1 Comments Stair Climbing Comments See mobility comments. PT-Balance Assessment Sitting Balance and Reactions Static Sitting Balance Ability Normal Dynamic Sitting Balance Ability Normal Standing Balance and Reactions Static Standing Balance Ability Good Dynamic Standing Balance Ability Fair M5 PT-IP Objective Assessments Start: 10/07/22 08:17 Freq: NEEDED Status: Active Protocol: Document 10/07/22 09:13 LRN (Rec: 10/07/22 09:39 LRN [id number]) Orientation Orientation/Cognition Level of Alertness Confusional State Orientation Name,Day of Week Language Function Ability No Deficits Noted Safety Awareness Decreased Safety Awareness Gross Range of Motion Upper Extremity ROM Assessment Within Functional Limits Lower Extremity ROM Assessment Within Functional Limits Strength Upper Extremity Strength Assessment Within Functional Limits Lower Extremity Strength Assessment Within Functional Limits Sensation Assessment Sensation Gross Sensation WNL Muscle Tone Muscle Tone WNL Yes M6 PT-IP Treatment Start: 10/07/22 08:17 Freq: NEEDED Status: Active Protocol: Document 10/07/22 09:13 LRN (Rec: 10/07/22 09:41 LRN [id number]) Physical Therapy Treatment Other Treatments Other Treatment Performed Transfer training supine>sit. M7 PT-IP Assessment and Plan Start: 10/07/22 08:17 Freq: NEEDED Status: Active Protocol: Document 10/07/22 11:42 TS (Rec: 10/07/22 11:55 TS [id number]) PT Summary Assessment and Plan Potential Rehabilitation Potential Excellent Summary Impairments Pain,Balance,Cognition,Bed Mobility,Transfers,Activity Tolerance Progress Towards Goals Progressing Toward Goals Assessment Summary Pt performed sit to stand SBA with no AD and bilateral UE support. When initiating gait pt had x1LOB requiring Emmanuel. He continued gait with use SPC ~225' SBA, more stable on feet, continued to have some unsteadiness, difficulties with keeping SPC on ground. He performed stairs x3 with SPC and handrial assist SBA with no buckling or LOB. PT is recommending return home with assist. Educated pt on using SPC/walker at home and benefits of outpatient therapy to improve balance. Goals Bed Mobility Goal Independent Transfer Goal Independent,Standby Assistance Gait Goal Independent,Standby Assistance Gait Distance 100' Days to Meet Goals 1 Frequency of Treatment Frequency Of Treatment Twice a Day Treatment Plan Physical Therapy Treatment Plan Bed Mobility Training,Transfer Training,Gait Training Weight Bearing Status Weight Bearing Status Full Weight Bearing Recommendations To Nursing Amount of Assist Needed Standby Assistance,1 Person Assist Discharge Recommendations PT Discharge Recommendations Home with Assistance Transportation Needs at Discharge Private Vehicle
--- NOTE | 2022-10-07 11:26 | P.DS_ITS ---
History of Present Illness History of Present Illness Date Patient Seen: 10/06/22 Chief complaint: GLF Narrative: 82 y/o with PMH of Squamous cell lung carcinoma, on no current treatment, f ollowed by oncology for possible involvement in trial, sustained GLF at home. He was found down in the bathroom. He likely spent several hours on the floor. Brought to hospital confused with workup revealing RML PNA, possibly postobstructive> Started on abx and admitted earlier today by day hospitalist. Discharge Providers Provider Date of admission: 10/06/22 16:27 Discharge Date: 10/07/22 Primary care physician: Mirza Escalante MD Consults: 10/06/22 16:22 Consult to Occupational Therapy Evaluate & Treat Comment: Physician Instructions: Evaluate and treat Consult to Physical Therapy Evaluate & Treat Comment: Physician Instructions: Evaluate and Treat 10/06/22 16:23 Consult to Dietitian, Adult Routine Comment: Reason For Exam: assess for malnutrition 10/06/22 16:33 Consult to Speech Therapy Evaluate & Treat Comment: needs SLUMS Physician Instructions: Evaluate and treat 10/07/22 07:25 Consult to LEATHER CLEANER - Billboard Poster Helper Routine Comment: may need skilled Discharge provider: Naseem Richardson DO Summary Hospital Course Discharge Diagnosis: 1. Possible right middle lobe pneumonia in the setting of lung cancer -chest x-ray with right middle lobe infiltrate -patient were without symptoms of pneumonia -given Rocephin and azithromycin, and discharged home on cefdinir finish 5 day course 2. DM - diabetic diet, SS 3. Prostate carcinoma with bone metastases 4. Elevated troponin - non-ischemic as per brand analyst, type 2 5. Dementia -continue Aricept. SLUMS test showed score of 11/30. 6. Fall in shower -no head or cervical trauma on CT's -PT eval rec home with assist Hospital Course: Admitted to the hospital after falling in the shower and lying on the floor for 3 hours. No evidence of rhabdo. Chest x-ray showed possible right middle lobe pneumonia however could be due to patient's lung cancer. He had no symptoms of pneumonia although his procalcitonin was elevated so he was treated with IV antibiotics then discharged home on p.o. antibiotics. Evaluated and cleared for home with assist. Home health with bath aide arranged to help with showers. Exam Vital Signs (past 8 hours): - 10/07/22 06:19 10/07/22 08:05 10/07/22 08:12 Temperature 97.6 F 97.8 F Pulse Rate 68 62 Respiratory Rate 17 16 Blood Pressure 141/55 H 139/57 L Pulse Oximetry 98 96 Oxygen Delivery Method Room Air Oxygen Flow Rate 0 Oxygen Delivery Method Room Air Oxygen Flow Rate 0 Objective Labs 10/07/22 05:55 10/07/22 05:55 Labs: Laboratory Results - last 24 hr 10/06/22 10/06/22 10/06/22 10:50 10:50 10:50 WBC 9.6 RBC 3.75 L Hgb 10.4 L Hct 31.5 L MCV 84.0 MCH 27.9 MCHC 33.2 RDW 15.1 H Plt Count 203 Neut % (Auto) 90.3 H Lymph % (Auto) 3.3 L Liberty % (Auto) 5.9 Eos % (Auto) 0.2 L Baso % (Auto) 0.3 Neut # (Auto) 8600 H Lymph # (Auto) 300 L Liberty # (Auto) 600 Eos # (Auto) 0 Baso # (Auto) 0 Sodium 134 L Potassium 4.0 Chloride 98 Carbon Dioxide 26 BUN 18 Creatinine 1.19 Estimated GFR > 60 BUN/Creatinine Ratio 15.1 Glucose 342 H Hgb A1c (Ref Lab) Estim Average Glucose Lactate 2.3 H Calcium 10.2 Magnesium Total Bilirubin 0.6 AST 31 ALT 17 Alkaline Phosphatase 55 Total Creatine Kinase 235 H Troponin I 0.060 H NT-Pro-B Natriuret Pep 454 H Total Protein 7.1 Albumin 4.1 Globulin 3.0 Albumin/Globulin Ratio 1.4 Procalcitonin 1.53 H TSH Urine Color Urine Appearance Urine pH Ur Specific [place] Urine Protein Urine Glucose (UA) Urine Ketones Urine Occult Blood Urine Nitrate Urine Bilirubin Urine Urobilinogen Ur Leukocyte Esterase Urine RBC Urine WBC Ur Squamous Epith Cells Urine Bacteria Hyaline Casts 10/06/22 10/06/22 10/06/22 10:50 10:50 10:50 WBC RBC Hgb Hct MCV MCH MCHC RDW Plt Count Neut % (Auto) Lymph % (Auto) Liberty % (Auto) Eos % (Auto) Baso % (Auto) Neut # (Auto) Lymph # (Auto) Liberty # (Auto) Eos # (Auto) Baso # (Auto) Sodium Potassium Chloride Carbon Dioxide BUN Creatinine Estimated GFR BUN/Creatinine Ratio Glucose Hgb A1c (Ref Lab) 7.8 H Estim Average Glucose 177 Lactate Calcium Magnesium 1.6 Total Bilirubin AST ALT Alkaline Phosphatase Total Creatine Kinase Troponin I NT-Pro-B Natriuret Pep Total Protein Albumin Globulin Albumin/Globulin Ratio Procalcitonin TSH 0.541 Urine Color Urine Appearance Urine pH Ur Specific [place] Urine Protein Urine Glucose (UA) Urine Ketones Urine Occult Blood Urine Nitrate Urine Bilirubin Urine Urobilinogen Ur Leukocyte Esterase Urine RBC Urine WBC Ur Squamous Epith Cells Urine Bacteria Hyaline Casts 10/06/22 10/06/22 10/06/22 14:07 14:32 14:50 WBC RBC Hgb Hct MCV MCH MCHC RDW Plt Count Neut % (Auto) Lymph % (Auto) Liberty % (Auto) Eos % (Auto) Baso % (Auto) Neut # (Auto) Lymph # (Auto) Liberty # (Auto) Eos # (Auto) Baso # (Auto) Sodium Potassium Chloride Carbon Dioxide BUN Creatinine Estimated GFR BUN/Creatinine Ratio Glucose Hgb A1c (Ref Lab) Estim Average Glucose Lactate 1.4 Calcium Magnesium Total Bilirubin AST ALT Alkaline Phosphatase Total Creatine Kinase Troponin I 0.304 H* NT-Pro-B Natriuret Pep Total Protein Albumin Globulin Albumin/Globulin Ratio Procalcitonin TSH Urine Color Yellow Urine Appearance Clear Urine pH 6.0 Ur Specific [place] 1.020 Urine Protein Trace H Urine Glucose (UA) 2+ H Urine Ketones 1+ H Urine Occult Blood 1+ H Urine Nitrate Negative Urine Bilirubin Negative Urine Urobilinogen 0.2 Ur Leukocyte Esterase Negative Urine RBC 0-1/hpf Urine WBC 0-1/hpf Ur Squamous Epith Cells 0-1 /hpf Urine Bacteria None seen Hyaline Casts 0-1/lpf 10/07/22 10/07/22 10/07/22 05:55 05:55 05:55 WBC 7.2 RBC 3.02 L Hgb 8.5 L Hct 25.2 L MCV 83.4 MCH 28.2 MCHC 33.8 RDW 14.8 Plt Count 171 Neut % (Auto) 78.8 H Lymph % (Auto) 13.8 L Liberty % (Auto) 6.0 Eos % (Auto) 1.0 L Baso % (Auto) 0.4 Neut # (Auto) 5700 Lymph # (Auto) 1000 L Liberty # (Auto) 400 Eos # (Auto) 100 Baso # (Auto) 0 Sodium 135 L Potassium 3.4 Chloride 101 Carbon Dioxide 30 BUN 16 Creatinine 1.04 Estimated GFR > 60 BUN/Creatinine Ratio 15.4 Glucose 186 H D Hgb A1c (Ref Lab) Estim Average Glucose Lactate Calcium 9.0 Magnesium Total Bilirubin AST ALT Alkaline Phosphatase Total Creatine Kinase Troponin I 0.487 H* NT-Pro-B Natriuret Pep Total Protein Albumin Globulin Albumin/Globulin Ratio Procalcitonin 8.94 H TSH Urine Color Urine Appearance Urine pH Ur Specific [place] Urine Protein Urine Glucose (UA) Urine Ketones Urine Occult Blood Urine Nitrate Urine Bilirubin Urine Urobilinogen Ur Leukocyte Esterase Urine RBC Urine WBC Ur Squamous Epith Cells Urine Bacteria Hyaline Casts 10/07/22 05:55 WBC RBC Hgb Hct MCV MCH MCHC RDW Plt Count Neut % (Auto) Lymph % (Auto) Liberty % (Auto) Eos % (Auto) Baso % (Auto) Neut # (Auto) Lymph # (Auto) Liberty # (Auto) Eos # (Auto) Baso # (Auto) Sodium Potassium Chloride Carbon Dioxide BUN Creatinine Estimated GFR BUN/Creatinine Ratio Glucose Hgb A1c (Ref Lab) Estim Average Glucose Lactate Calcium Magnesium 1.8 Total Bilirubin AST ALT Alkaline Phosphatase Total Creatine Kinase Troponin I NT-Pro-B Natriuret Pep Total Protein Albumin Globulin Albumin/Globulin Ratio Procalcitonin TSH Urine Color Urine Appearance Urine pH Ur Specific [place] Urine Protein Urine Glucose (UA) Urine Ketones Urine Occult Blood Urine Nitrate Urine Bilirubin Urine Urobilinogen Ur Leukocyte Esterase Urine RBC Urine WBC Ur Squamous Epith Cells Urine Bacteria Hyaline Casts [facility] History Abnormal CXR (chest x-ray) (1977) 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 Brother No problems noted. Brother Diabetes mellitus Sister No problems noted. Social History marital status: household members: spouse lives independently: Yes Smoking Status: Former smoker alcohol intake: former Discharge Plan Discharge Plan Patient Disposition: Home Health Service Discharge orders & Medications Prescriptions: New cefdinir 300 mg capsule 300 mg PO BID 3 Days Qty: 6 0RF Continued (DME) blood-glucose meter [Accu-Chek Guide Glucose Meter] Misc See Rx Instructions .Route Qty: 1 0RF Rx Instructions: As directed (DME) lancets for glucose checks See Rx Instructions .Route .MEDSUPPLY Qty: 1 12RF Rx Instructions: As directed (DME) Accu-Chek Wandy Plus test strp Strip See Rx Instructions .Route Qty: 100 6RF Rx Instructions: Use to check CBG 3x daily as directed by PCP (DME) lancets [Accu-Chek Softclix Lancets] Misc See Rx Instructions .Route Qty: 100 12RF Rx Instructions: as directed metformin 1,000 mg tablet 1,000 mg PO BID Qty: 180 3RF donepezil 5 mg tablet 5 mg PO BEDTIME Qty: 90 3RF aspirin 81 mg tablet,delayed release (DR/EC) 81 mg PO DAILY chlorhexidine gluconate 0.12 % mouthwash 15 ml PO DAILY Rx Instructions: 0.5oz Changed amoxicillin 500 mg capsule 500 mg PO 3XD PRN (Reason: for jaw soreness) 30 Days Qty: 30 0RF Follow up/Referrals: Mirza Escalante MD [Primary Care Provider] - 2 Weeks (*Appt on with at 10:30am [phone].) Visit Report/Discharge Packet Instructions: DI for Pneumonia -- Adult, How to Prevent Falls Stand Alone Forms: Patient Portal/API, Stroke Signs & Symptoms Discharge Data Primary Care Provider: Mirza Escalante Discharges patient from system. Discharge Date/Time: 10/07/22 13:02 Quality VTE Deep Vein Thrombosis/Pulmonary Embolism Present on Admission: No
--- NOTE | 2022-10-07 13:00 | PC.NURSE ---
Day shift: Paperwork signed and all questions answered. Left unit at approx 1255 via WC. Taken to car by this proposal manager writer via WC. Pt ambulating well and steady on feet. SPouse in room for d/c teachings also. scripts sent electronic to Pt's pharmacy. Pt has all personal belongings.
--- NOTE | 2022-10-07 13:54 | CM.DANOTE ---
Initial DCP Assessment Note Pt is an 82 yo male, resident of [place], presents after a fall in the shower at home. Patient with PMH significant for metastatic prostate cancer and cognitive decline Patient cleared by therapies for discharge home w/assist, spouse requesting [facility] PCP: Mirza Escalante Payer: [facility] Met w/patient's spouse Radha this morning before patient's discharge. Spouse appeared overwhelmed, in distress and anxious, continued to hold her belly and said she had an upset stomach. Instructed spouse through box breathing to help facilitate a calm state. Spouse was able to calm herself in order to discuss DCP Patient and spouse live with their daughter and grand dtr- daughter works. Spouse can leave the home while grand dtr stays with patient and denies other needs from this BOTTLE CAPPER, says he needs bathing assistance and requests services Educated spouse about home health vs hospice services F2F completed and HH order placed, requested that Leslie web site admin contact [facility] for this referral. Patient has been discharged home w/spouse and family to assist Plan: DC home w/spouse and family, [facility] services- PT/OT/INSURANCE OFFICE MANAGER/BOTTLE CAPPER PETER Gr Discharge Planning/Care Management CM Discharge Assessment Start: 10/07/22 13:50 Freq: Status: Discharge Protocol: Document 10/07/22 13:50 RAND (Rec: 10/07/22 13:53 RAND [id number]) Discharge Planning Assessment Assigned Pack Train Driver PETER Foley DPOA/Assigned Designee Name Radha Ramires spouse Contact Information [phone] Advance Directives? Yes Advance Directives on File No History Provided By Family Member,Medical Record Prior Living Arrangements House Household Members spouse Type of transporation used prior to Relies on Others admit Independent with ADL's No Is patient alert and oriented? No Needs Assistance With Bathing,Grooming,Meal Prep, Toileting,Managing Medications ,Home Chores / Shopping Patient/Family Preference Home with Home Health Comment Spouse requests [facility] which she had in the past Barriers to Discharge No Comment Home w/spouse and HH, spouse agreeable to plan Discharge Plan Home with Home Health Transportation Arrangement Spouse to transport home Referrals Initiated Home Health Additional Comment [facility] referral, F2F and HH order completed Medicare Choice List Provided No SNF/HH Preference [facility] , previous experience Has Agency SNF been contacted Yes
== END 2022-10-07 13:02 | disposition home health service (06) | DRG 194 ==
LOC: ED 16:23 → AC 16:28
PROVIDERS: Admitting Provider Student in an Organized Health Care Education/Training Program; Emergency Provider Emergency Medicine; PCP Family Medicine; Referring Provider Emergency Medicine; Visit Provider Student in an Organized Health Care Education/Training Program
DX: J18.9 Pneumonia, unspecified organism (principal); C79.51 Secondary malignant neoplasm of bone; C61 Malignant neoplasm of prostate; E11.9 Type 2 diabetes mellitus without complications; F03.90 Unspecified dementia, unspecified severity, without behavioral disturbance, psychotic disturbance, mood disturbance, and anxiety; W18.2XXA Fall in (into) shower or empty bathtub, initial encounter; Z79.84 Long term (current) use of oral hypoglycemic drugs; Z87.891 Personal history of nicotine dependence
CPT/HCPCS: 36415; 70450; 71045; 72125; 73502; 80048; 80053; 81001; 82550; 82962; 83036; 83605; 83735; 83880; 84145; 84443; 84484; 85025; 87040; 92523; 93005; 96365; 97116; 97162; 97165; 97535; 99284; 99285; J0696; J1650; J1815

== ENCOUNTER → 2023-04-27 14:03 | Outpatient (CLI) | payer OTHER, SELFPAY ==
[2022-10-06 17:46] VITALS: BMI 24.0
--- NOTE | 2023-04-27 14:27 | DI.CT.S_ITS ---
PROCEDURE: CT FACIAL BONES W CON INDICATIONS: Per dentist, needs stat image for jaw necrosis and abscess TECHNIQUE: After the administration of intravenous contrast, 2.5 mm axial sections acquired from the mid-neck to the frontal sinuses, with coronal and sagittal reformats. For radiation dose reduction, the following was used: automated exposure control, adjustment of mA and/or kV according to patient size. COMPARISON: None. FINDINGS: Image quality: Excellent. Soft tissues: No edema, masses, or fluid collections. No enlarged lymph nodes. Vascular: Visualized vascular structures appear patent throughout. Bony vascular foramina and canals appear normal. Bones: There is ill-defined low density within the right anterior mandible, associated with dehiscence of the overlying cortex, spanning roughly 25 mm transverse. Subchondral sclerosis within the mandibular heads bilaterally. Multiple sclerotic foci throughout the visualized cervical spine. Scattered lucencies within the visualized calvarium. Visualized portions of the skull base and auditory canals also appear normal. Sinuses: Paranasal sinuses are aerated without fluid levels, mucosal thickening, or mucoceles. Mastoid air cells are aerated. IMPRESSION: 1. 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 2. Moderate bony metastatic disease. Dictated by: Erich Asencio M.D. on 04/27/2023 at 15:17 Approved by: Erich Asencio M.D. on 04/27/2023 at 15:21
[2023-04-27 14:34] LABS: Estimated Glomerular Filt Rate > 60 mL/min (>60)
== END ==
PROVIDERS: Radiology Diagnostic Radiology; PCP Family Medicine; Referring Provider Family Medicine; Visit Provider Family Medicine
DX: C79.51 Secondary malignant neoplasm of bone (principal); C80.1 Malignant (primary) neoplasm, unspecified; M87.180 Osteonecrosis due to drugs, jaw; T45.8X5A Adverse effect of other primarily systemic and hematological agents, initial encounter; R68.84 Jaw pain; M27.2 Inflammatory conditions of jaws; R29.6 Repeated falls
CPT/HCPCS: 36415; 70487; 82565; Q9967

== ENCOUNTER → 2023-05-26 13:22 | Outpatient (CLI) | payer OTHER, SELFPAY ==
[2022-10-06 17:46] VITALS: BMI 24.0
[2023-05-26 15:22] LABS: Add Manual Diff / Slide Review NO; Basophils Absolute Auto 0 /uL (0-100); Basophils Percent Auto 0.5 % (0-2); Eosinophils Absolute Auto 200 /uL (0-450); Hematocrit 30.7 % (41-53); Hemoglobin 10.4 g/dL (13.5-17.5); Lymphocytes Absolute Auto 1200 /uL (1100-4500); Mean Corpuscular HGB Conc 33.8 % (30-36); Mean Corpuscular Hemoglobin 26.9 PG (26-34); Mean Corpuscular Volume 79.6 fL (80-100); Monocytes Absolute Auto 600 /uL (0-900); Monocytes Percent Auto 8.6 % (3-14); Neutrophils Absolute Auto 4400 /uL (1500-7000); Neutrophils Percent Auto 68.9 % (50-75); Platelet Count 280 X10^3/uL (150-400); Red Blood Cell Count 3.87 X10^6/uL (4.5-5.9); Red Cell Distribution Width 15.4 % (11.6-14.8); White Blood Cell Count 6.4 X10^3/uL (4.5-11.0)
[2023-05-26 15:34] LABS: Alanine Aminotransferase 11 IU/L (<50); Albumin Globulin Ratio 1.2 (1.0-2.8); Alkaline Phosphatase 76 U/L (38-126); Aspartate Aminotransferase 18 IU/L (17-59); BUN Creatinine Ratio 15.9 (6-22); Bilirubin Total 0.5 mg/dL (0.2-1.3); Blood Urea Nitrogen 17 mg/dL (9-20); Calcium 9.8 mg/dL (8.4-10.2); Carbon Dioxide 28 mmol/L (22-32); Chloride 97 mmol/L (98-107); Estimated Glomerular Filt Rate > 60 mL/min (>60); Globulin 3.3 g/dL (1.7-4.1); Glucose 284 mg/dL (80-110); HEMOLYSIS < 15 (0-50); Potassium 4.7 mmol/L (3.4-5.1); Sodium 132 mmol/L (137-145); Total Protein 7.3 g/dL (6.3-8.2)
[2023-05-26 15:39] LABS: HEMOLYSIS < 15 (0-50); Iron 50 ug/dL (49-181)
[2023-05-26 15:51] LABS: Percent Iron Saturation 17 % (20-50); Total Iron Binding Capacity 297 ug/dL (261-462); Transferrin 237 mg/dL (206-381)
[2023-05-26 16:06] LABS: Ferritin 26 ng/mL (18-464)
== END ==
PROVIDERS: PCP Family Medicine; Referring Provider Family Medicine; Visit Provider Family Medicine
DX: E11.69 Type 2 diabetes mellitus with other specified complication (principal); E78.5 Hyperlipidemia, unspecified; I10 Essential (primary) hypertension; G30.9 Alzheimer's disease, unspecified; F02.80 Dementia in other diseases classified elsewhere, unspecified severity, without behavioral disturbance, psychotic disturbance, mood disturbance, and anxiety
CPT/HCPCS: 36415; 80053; 82728; 83540; 83550; 85025

== ENCOUNTER → 2023-06-13 12:13 | Outpatient (CLI) | payer OTHER, SELFPAY ==
[2022-10-06 17:46] VITALS: BMI 24.0
[2023-06-13 13:24] LABS: Add Manual Diff / Slide Review NO; Basophils Absolute Auto 100 /uL (0-100); Basophils Percent Auto 0.9 % (0-2); Eosinophils Absolute Auto 200 /uL (0-450); Eosinophils Percent Auto 3.3 % (2-4); Hematocrit 33.5 % (41-53); Lymphocytes Absolute Auto 1500 /uL (1100-4500); Lymphocytes Percent Auto 21.2 % (25-40); Mean Corpuscular HGB Conc 32.7 % (30-36); Mean Corpuscular Volume 82.6 fL (80-100); Monocytes Absolute Auto 600 /uL (0-900); Monocytes Percent Auto 8.9 % (3-14); Neutrophils Absolute Auto 4600 /uL (1500-7000); Neutrophils Percent Auto 65.7 % (50-75); Platelet Count 327 X10^3/uL (150-400); Red Blood Cell Count 4.06 X10^6/uL (4.5-5.9)
[2023-06-13 13:40] LABS: HEMOLYSIS < 15 (0-50); Iron 98 ug/dL (49-181)
[2023-06-13 13:53] LABS: Percent Iron Saturation 36 % (20-50); Total Iron Binding Capacity 272 ug/dL (261-462); Transferrin 215 mg/dL (206-381)
== END ==
LOC: LAB 12:15
PROVIDERS: PCP Family Medicine; Referring Provider Family Medicine; Visit Provider Family Medicine
DX: D50.9 Iron deficiency anemia, unspecified (principal)
CPT/HCPCS: 36415; 83540; 83550; 85025

== ENCOUNTER → 2023-06-19 08:03 | Outpatient (CLI) | payer OTHER, SELFPAY ==
[2022-10-06 17:46] VITALS: BMI 24.0
[2023-06-19 08:22] LABS: Add Manual Diff / Slide Review NO; Basophils Absolute Auto 0 /uL (0-100); Basophils Percent Auto 0.7 % (0-2); Eosinophils Absolute Auto 200 /uL (0-450); Eosinophils Percent Auto 3.6 % (2-4); Hematocrit 33.8 % (41-53); Lymphocytes Absolute Auto 1300 /uL (1100-4500); Lymphocytes Percent Auto 20.4 % (25-40); Mean Corpuscular HGB Conc 32.6 % (30-36); Mean Corpuscular Hemoglobin 27.3 PG (26-34); Mean Corpuscular Volume 83.7 fL (80-100); Monocytes Absolute Auto 600 /uL (0-900); Monocytes Percent Auto 8.9 % (3-14); Neutrophils Absolute Auto 4300 /uL (1500-7000); Neutrophils Percent Auto 66.4 % (50-75); Platelet Count 250 X10^3/uL (150-400); Red Blood Cell Count 4.04 X10^6/uL (4.5-5.9); Red Cell Distribution Width 17.3 % (11.6-14.8); White Blood Cell Count 6.4 X10^3/uL (4.5-11.0)
[2023-06-19 08:38] LABS: HEMOLYSIS < 15 (0-50); Iron 244 ug/dL (49-181)
[2023-06-19 08:49] LABS: Percent Iron Saturation 98 % (20-50); Total Iron Binding Capacity 248 ug/dL (261-462); Transferrin 204 mg/dL (206-381)
== END ==
PROVIDERS: PCP Family Medicine; Referring Provider Family Medicine; Visit Provider Family Medicine
DX: D50.9 Iron deficiency anemia, unspecified (principal)
CPT/HCPCS: 36415; 83540; 83550; 85025